=== PATIENT | female | born 1990 | race Caucasian/White ===

== ENCOUNTER 2017-03-13 16:34 | Emergency (ER) | payer OTHER ==
[2017-03-13] MEDS ORDERED: ALBUTEROL SULFATE 0.083% NEB 2.5 MG/3 ML AMPUL NEB ONE (18:26)
--- NOTE | 2017-03-13 18:27 | ER Document Report ---
ED Flu Like - General Chief Complaint: Flu Symptoms Stated Complaint: BODY ACHES Time Seen by Provider: 03/13/17 18:18 Notes: Patient is a 27-year-old female who presents emergency department with a chief complaint of cough, body aches, headache, sinus congestion and drainage for the past 3 weeks on and off. Patient states [place] that she has had sick contacts around her this past month. States she did get a flu vaccine. Otherwise denies any fevers, productive cough, shortness of breath or chest pain, nausea, vomiting, abdominal pain, diarrhea or constipation TRAVEL OUTSIDE OF THE [place] IN LAST 30 DAYS: No - Related Data Allergies/Adverse Reactions: prednisone Allergy (Verified 03/13/17 16:36) Past Medical History - Social History Smoking Status: Never Smoker Family History: Reviewed & Not Pertinent Review of Systems - Review of Systems Constitutional: See HPI EENT: See HPI Cardiovascular: No symptoms reported Respiratory: See HPI Gastrointestinal: See HPI Neurological/Psychological: See HPI -: Yes All other systems reviewed and negative Physical Exam - Vital signs Vitals: Temp Pulse Resp BP Pulse Ox 98.0 F 74 16 107/65 100 03/13/17 16:48 03/13/17 16:48 03/13/17 16:48 03/13/17 16:48 03/13/17 16:48 - Notes Notes: PHYSICAL EXAM GENERAL: Alert, interacts well. HEENT: NCAT, pale conjunctiva, extraocular movements intact, pupils PERRL. external ear normal, no evidence of external auditory canal tenderness, blood/ drainage, cerumen impaction, TM intact without evidence of effusion, bulging, injection, MMM, Uvula midline. Airway patent. No evidence of tonsillar enlargement, peritonsillar abscess, retropharyngeal abscess. Wheezes, rales, or rhonchi. No respiratory distress. HEART: Regular rate and rhythm. No murmurs, gallops, or rubs. ABDOMEN: Soft, nondistended, nontender. No guarding, rebound, or rigidity.. Bowel sounds present in all 4 quadrants. EXTREMITIES: Moves all 4 extremities spontaneously. No edema, radial and dorsalis pedis pulses 2/4 bilaterally. No cyanosis. NEUROLOGICAL: Alert and oriented x4. Normal speech. PSYCH: Normal affect, normal mood. SKIN: Warm, dry, normal turgor. No rashes or lesions noted. Course - Re-evaluation Re-evalutation: 03/13/17 20:18 Patient is a 27-year-old female is hemodynamically stable, no acute distress and afebrile. Chest x-ray clear without any evidence of infiltrate. Rapid strep and rapid flu were both negative. Presentation is most consistent with a viral upper respiratory infection. Patient is overall well appearance, vitals within normal limits, well-hydrated. Patient denies any headache, neck pain, and has no evidence of meningismus on examination. Lungs are clear bilaterally. No evidence of respiratory distress. Based on clinical exam and history, I do not suspect an acute pneumonia, meningitis, strep pharyngitis, or an acute encephalitis. No laboratory or imaging testing is indicated at this time. Will discharge patient with return precautions and followup recommendations. They are in agreement this plan have verbalized understanding return precautions. - Vital Signs Vital signs: Temp Pulse Resp BP Pulse Ox 97.9 F 65 20 114/66 100 03/13/17 20:32 03/13/17 20:32 03/13/17 20:32 03/13/17 20:32 03/13/17 20:32 - Diagnostic Test Radiology reviewed: Image reviewed, Reports reviewed Discharge - Discharge Clinical Impression: URI (upper respiratory infection) Qualifiers: URI type: unspecified viral URI Qualified Code(s): J06.9 - Acute upper respiratory infection, unspecified Condition: Good Disposition: HOME, SELF-CARE Instructions: Upper Respiratory Illness ([facility]) Additional Instructions: Please follow-up with your primary care doctor in 1 week He can take [id number] pseudoephedrine which will function as a decongestant as well as Benadryl. Prescriptions: Benzonatate [Tessalon Perle 100 mg Capsule] 100 mg PO Q8HP PRN #40 cap PRN Reason: Albuterol Sulfate [Proair HFA Inhalation Aerosol 8.5 gm MDI] 1 puff IH Q4 PRN # 1 mdi PRN Reason: Dexamethasone [Dexpak] 1.5 mg PO ASDIR PRN 6 Days #21 tab.ds.pk PRN Reason:
--- NOTE | 2017-03-13 19:11 | RADIOLOGY REPORT (SQ) ---
EXAM DESCRIPTION: CHEST PA/LAT COMPLETED DATE/TIME: 03/13/2017 6:45 pm REASON FOR STUDY: cough COMPARISON: None. EXAM PARAMETERS: NUMBER OF VIEWS: two views TECHNIQUE: Digital Frontal and Lateral radiographic views of the chest acquired. RADIATION DOSE: NA LIMITATIONS: none FINDINGS: LUNGS AND PLEURA: No opacities, masses or pneumothorax. No pleural effusion. MEDIASTINUM AND HILAR STRUCTURES: No masses or contour abnormalities. HEART AND VASCULAR STRUCTURES: Heart normal size. No evidence for failure. BONES: Incidental note is made of mild inferior pectus excavatum deformity. HARDWARE: None in the chest. OTHER: No other significant finding. IMPRESSION: No evidence of acute pulmonary process. TECHNICAL DOCUMENTATION: JOB ID: [id number] [employer]- All Rights Reserved
[2017-03-13 20:03] LABS: A TYPE INFLUENZA AG NEGATIVE (NEGATIVE); B INFLUENZA AG NEGATIVE (NEGATIVE)
[2017-03-13] MEDS ORDERED: ACETAMINOPHEN 325 MG TABLET PO ONE (20:23)
[2017-03-13 20:37] VITALS: BP 114/66
== END 2017-03-13 20:39 | disposition home or self-care (01) ==
LOC: ER 16:34
DX: J06.9 Acute upper respiratory infection, unspecified (principal); M79.1 Myalgia; R05 Cough; R51 Headache; R09.81 Nasal congestion
CPT/HCPCS: 71046; 87070; 87804; 87880; 94640; 99283

== ENCOUNTER 2017-07-15 19:58 | Emergency (ER) | payer OTHER ==
[2017-07-15 20:05] VITALS: BP 105/59
--- NOTE | 2017-07-15 20:25 | ER Document Report ---
ED Medical Screen (RME) - General Chief Complaint: Leg Swelling Stated Complaint: BACK PAIN Time Seen by Provider: 07/15/17 20:14 Notes: 27-year-old female with herniated disc sensation for neurosurgery in 1 month at [place], presents with a few days of increasing right thigh pain and bruising. When she injured her back at work, she also injured her knee. Has not had imaging for her knee. She has been on bedrest until her neurosurgery. PE: Mild right knee effusion with swelling and tenderness, ecchymosis up right medial thigh, strong DP and PT pulses. I have greeted and performed a rapid initial assessment of this patient. A comprehensive ED assessment and evaluation of the patient, analysis of test results and completion of the medical decision making process will be conducted by additional ED providers. TRAVEL OUTSIDE OF THE [place]S. IN LAST 30 DAYS: No - Related Data Allergies/Adverse Reactions: prednisone Allergy (Verified 03/13/17 16:36) Past Medical History - Social History Chew tobacco use (# tins/day): No Frequency of alcohol use: None Drug Abuse: None Renal/ Medical History: Denies: Hx Peritoneal Dialysis Physical Exam - Vital signs Vitals: Temp Pulse Resp BP Pulse Ox 98.5 F 81 15 105/59 L 97 07/15/17 20:03 07/15/17 20:03 07/15/17 20:03 07/15/17 20:03 07/15/17 20:03 Course - Vital Signs Vital signs: Temp Pulse Resp BP Pulse Ox 98.5 F 81 15 105/59 L 97 07/15/17 20:03 07/15/17 20:03 07/15/17 20:03 07/15/17 20:03 07/15/17 20:03
--- NOTE | 2017-07-15 21:02 | RADIOLOGY REPORT (SQ) ---
EXAM DESCRIPTION: KNEE RIGHT 4 VIEWS COMPLETED DATE/TIME: 07/15/2017 8:47 pm REASON FOR STUDY: right knee pain and swelling COMPARISON: None. NUMBER OF VIEWS: Four views. TECHNIQUE: AP, lateral, and both oblique radiographic images acquired of the right knee. LIMITATIONS: None. FINDINGS: MINERALIZATION: Normal. BONES: No acute fracture or dislocation. No worrisome bone lesions. JOINT: No effusion. SOFT TISSUES: No soft tissue swelling. No radio-opaque foreign body. OTHER: No other significant finding. IMPRESSION: NEGATIVE STUDY OF THE RIGHT KNEE. NO RADIOGRAPHIC EVIDENCE OF ACUTE INJURY. TECHNICAL DOCUMENTATION: JOB ID: [id number] [employer]- All Rights Reserved Reading location - IP/workstation name: [email or web address]
--- NOTE | 2017-07-15 22:38 | ER Document Report ---
ED Extremity Problem, Lower - General Chief Complaint: Leg Swelling Stated Complaint: BACK PAIN Time Seen by Provider: 07/15/17 20:14 Mode of Arrival: Ambulatory Information source: Patient Notes: Patient is a 27-year-old female who presents with complaints of right-sided knee pain with bruising. Patient reports that she fell approximately 3 weeks ago while running through the [place]. Patient further reports that she is being worked up for a spinal fusion at [facility]. Patient states that she has not mentioned this to her physician. Provider in triage ordered right knee x-ray as well as right venous Doppler ultrasound. X-ray shows no fracture and no effusion. There is no DVT noted on the venous Doppler. Patient is able to bear weight and ambulate without difficulty. Recommended that patient should follow-up with her primary care physician for possible MRI in case there is a small tear in 1 of her ligaments. Patient understood that this would not necessarily show up on x-rays. Patient declines the need for any pain medications as she states that she rarely has some at home written by her primary care provider. TRAVEL OUTSIDE OF THE [place] IN LAST 30 DAYS: No - Related Data Allergies/Adverse Reactions: prednisone Allergy (Verified 03/13/17 16:36) Past Medical History - Social History Smoking Status: Current Every Day Smoker Chew tobacco use (# tins/day): No Frequency of alcohol use: None Drug Abuse: None Family History: Reviewed & Not Pertinent Patient has suicidal ideation: No Patient has homicidal ideation: No Renal/ Medical History: Denies: Hx Peritoneal Dialysis Physical Exam - Vital signs Vitals: Temp Pulse Resp BP Pulse Ox 98.5 F 81 15 105/59 L 97 07/15/17 20:03 07/15/17 20:03 07/15/17 20:03 07/15/17 20:03 07/15/17 20:03 - Notes Notes: PHYSICAL EXAMINATION: GENERAL: Well-appearing, well-nourished and in no acute distress. HEAD: Atraumatic, normocephalic. EYES: Pupils equal round and reactive to light, extraocular movements intact, conjunctiva are normal. ENT: Nares patent, oropharynx clear without exudates. Moist mucous membranes. NECK: Normal range of motion, supple without lymphadenopathy LUNGS: Breath sounds clear to auscultation bilaterally and equal. No wheezes rales or rhonchi. HEART: Regular rate and rhythm without murmurs ABDOMEN: Soft, nontender, nondistended abdomen. No guarding, no rebound. No masses appreciated. Female : deferred Musculoskeletal: Limited range of motion to right knee, no pitting, mild edema. No cyanosis. NEUROLOGICAL: Cranial nerves grossly intact. Normal speech, normal gait. Normal sensory, motor exams PSYCH: Normal mood, normal affect. SKIN: Warm, Dry, normal turgor, no rashes or lesions noted. Course - Vital Signs Vital signs: Temp Pulse Resp BP Pulse Ox 98.5 F 81 15 105/59 L 97 07/15/17 20:03 07/15/17 20:03 07/15/17 20:03 07/15/17 20:03 07/15/17 20:03 Discharge - Discharge Clinical Impression: Right knee pain Qualifiers: Chronicity: unspecified Qualified Code(s): M25.561 - Pain in right knee Condition: Stable Disposition: HOME, SELF-CARE Additional Instructions: The x-ray of your right knee does not show any signs of fracture or effusion. The venous Doppler of your right leg does not show any evidence of blood clots. Given the fact that your injury was several weeks ago and you are continuing to have pain and swelling to the right knee the next step would be considering an MRI through your primary care provider. I have enclosed copies of your x- ray results for your primary care provider's review and records. Referrals: JACINTO CHEEMA MD [Primary Care Provider] - Follow up as needed
--- NOTE | 2017-07-16 12:10 | XCELERA REPORT ---
[address] [address] Lower Extremity Venous Evaluation Name: SHAJI PACE Age: 27 yrs Gender: Female : 1990 Patient Status: Emergency Patient Location: ER Study Date: 07/15/2017 09:37 PM Procedure: Color flow and duplex imaging of the veins of the right lower extremity as well as the left Common Femoral vein. Reason For Study: RLE swelling Ordering Physician: MAEGAN PUCKETT Performed By: Raleigh Holman Right Sided Venous Evaluation Normal vessel filling wall to wall, compression and augmentation as well as Colour flow down to the infrageniculate veins. Left Sided Venous Evaluation The left common femoral vein is fully compressible. Spontaneous and phasic flow is present in the left common femoral vein. Interpretation Summary No duplex evidence of DVT or obstruction in the right lower extremity nor in the left Common Femoral vein. : MAEGAN PUCKETT > Fabio Martinez
== END 2017-07-15 22:53 | disposition home or self-care (01) ==
LOC: ER 19:58
DX: M25.561 Pain in right knee (principal); M79.89 Other specified soft tissue disorders; M54.9 Dorsalgia, unspecified; F17.200 Nicotine dependence, unspecified, uncomplicated
CPT/HCPCS: 93971; 99284

== ENCOUNTER 2017-09-04 12:59 | Emergency (ER) | payer OTHER ==
[2017-09-04 13:06] VITALS: BP 104/48
--- NOTE | 2017-09-04 13:31 | ER Document Report ---
ED GI/ - General Mode of Arrival: Ambulatory Information source: Patient TRAVEL OUTSIDE OF THE [place] IN LAST 30 DAYS: No - General Chief Complaint: Constipation Stated Complaint: POST SURGICAL PAIN Time Seen by Provider: 09/04/17 13:21 Notes: Patient is a 27-year-old female that presents to the emergency department today with complaints of constipation. Patient 4 days ago she had a lumbar spine discectomy secondary to "being [place] [employer]". Patient states she was given stool softeners but she still has not had a bowel movement since being discharged from the hospital. Patient is on Percocet. (CORNELLMAGALY) - Related Data Allergies/Adverse Reactions: prednisone Allergy (Verified 09/04/17 13:02) Past Medical History - General Information source: Patient - Social History Smoking Status: Former Smoker Cigarette use (# per day): No Chew tobacco use (# tins/day): No Frequency of alcohol use: None Drug Abuse: None Lives with: Family Family History: Reviewed & Not Pertinent Patient has suicidal ideation: No Patient has homicidal ideation: No Past Surgical History: Reports: Hx Orthopedic Surgery - spinal surgery Review of Systems - Review of Systems Constitutional: No symptoms reported EENT: No symptoms reported Cardiovascular: No symptoms reported Respiratory: No symptoms reported Gastrointestinal: See HPI, Nausea, Constipation Genitourinary: No symptoms reported Female Genitourinary: No symptoms reported Musculoskeletal: No symptoms reported Skin: No symptoms reported Hematologic/Lymphatic: No symptoms reported Neurological/Psychological: No symptoms reported -: Yes All other systems reviewed and negative Physical Exam - Vital signs Vitals: Temp Pulse Resp BP Pulse Ox 97.9 F 75 16 104/48 L 99 09/04/17 13:05 09/04/17 13:05 09/04/17 13:05 09/04/17 13:05 09/04/17 13:05 - Notes Notes: Physical Exam: General: Alert, appears well. HEENT: Normocephalic. Atraumatic. PERRL. Extraocular movements intact. Oropharynx clear. Neck: Supple. Non-tender. Respiratory: No respiratory distress. Clear and equal breath sounds bilaterally. Cardiovascular: Regular rate and rhythm. Abdominal: Lower abdominal tenderness. No distension. Normal Bowel Sounds. Back: Well healed surgical incision to lower back, no surrounding erythema or induration. No deformity or step off. Extremities: Moves all four extremities. Able to stand from wheelchair and ambulate without difficulty. Upper extremities: Normal inspection. Normal ROM. Lower extremities: Normal inspection. No edema. Normal ROM. Neurological: Normal cognition. AAOx4. Normal speech. Psychological: Normal affect. Normal Mood. Skin: Warm. Dry. Normal color. (MAGALY SARABIA) Course - Re-evaluation Re-evalutation: 09/04/17 13:35 Patient has benign exam in no distress at this time. No bladder incontinence and is able to stand from chair without difficulty. No concerning signs for infection or cauda equina. Patient has been taking Percocet has been constipated for the last 4-[address] patient on bowel regimen at this time. She opted not to have soapsuds enema in the emergency department and would rather try bowel regimen provided in triage at her own home. Return precautions provided (RASHAD WISEMAN) - Vital Signs Vital signs: Temp Pulse Resp BP Pulse Ox 97.9 F 75 16 104/48 L 99 09/04/17 13:05 09/04/17 13:05 09/04/17 13:05 09/04/17 13:05 09/04/17 13:05 Discharge - Discharge Clinical Impression: Constipation due to opioid therapy Disposition: HOME, SELF-CARE Instructions: Constipation ([facility]), Laxative ([facility]) Prescriptions: Glycerin [Glycerin Laxative] 5.4 gm RC ASDIR PRN #7 ml PRN Reason: Magnesium Hydroxide [Milk of Magnesia] 2,400 mg PO BID #1 bottle Polyethylene Glycol 3350 [Miralax Powder 17 gm/Packet] 1 packet PO DAILY #10 pkg Referrals: JACINTO CHEEMA MD [Primary Care Provider] - Follow up as needed Scribe Attestation: 09/05/17 15:28 I personally performed the services described documentation, reviewed and edited the documentation which was dictated to describe my presence, and it accurately records my words and actions. (RASHAD WISEMAN) Scribe Documentation - Scribe Written by Scribe:: Obdulio Hansen, 09/04/2017 1400 acting as scribe for :: Delano
== END 2017-09-04 14:00 | disposition home or self-care (01) ==
LOC: ER 12:59
DX: K59.03 Drug induced constipation (principal); T40.2X5A Adverse effect of other opioids, initial encounter; Z98.890 Other specified postprocedural states; R11.0 Nausea; Z88.8 Allergy status to other drugs, medicaments and biological substances; Z87.891 Personal history of nicotine dependence
CPT/HCPCS: 99283

== ENCOUNTER 2017-10-24 14:11 | Emergency (ER) | payer OTHER ==
[2017-10-24] MEDS ORDERED: RINGERS SOLUTION,LACTATED 1,000 ML IV ONE (14:48)
[2017-10-24] MEDS ORDERED: ONDANSETRON HCL INJ/PF 4 MG/2 ML SDV IV ONE (14:48)
--- NOTE | 2017-10-24 14:50 | ER Document Report ---
ED Medical Screen (RME) - General Chief Complaint: Nausea/Vomiting Stated Complaint: NAUSEA Time Seen by Provider: 10/24/17 14:43 Mode of Arrival: Wheelchair Information source: Patient Notes: This is a 27-year-old female that had a discectomy August 31 in [facility]. Her postoperative period is been complicated by pain and she has been evaluated by back specialist at [place] (seen last week) and is currently undergoing workup for radicular type symptoms. Patient presents today with nausea, vomiting, worsening back pain. Patient denies fever. Patient is requesting to hold off on pain medicine at this time. TRAVEL OUTSIDE OF THE [place] IN LAST 30 DAYS: No - Related Data Allergies/Adverse Reactions: prednisone Allergy (Verified 10/24/17 14:12) Past Medical History Renal/ Medical History: Denies: Hx Peritoneal Dialysis Past Surgical History: Reports: Hx Orthopedic Surgery - spinal surgery Physical Exam - Vital signs Vitals: Temp Pulse Resp BP Pulse Ox 98.9 F 76 16 100/45 L 98 10/24/17 14:25 10/24/17 14:25 10/24/17 14:25 10/24/17 14:25 10/24/17 14:25 Course - Vital Signs Vital signs: Temp Pulse Resp BP Pulse Ox 98.9 F 76 16 100/45 L 98 10/24/17 14:25 10/24/17 14:25 10/24/17 14:25 10/24/17 14:25 10/24/17 14:25 Doctor's Discharge - Discharge Referrals: JACINTO CHEEMA MD [Primary Care Provider] - Follow up as needed
[2017-10-24 15:13] LABS: ABSOLUTE EOSINOPHILS # (AUTO) 0.1 10^3/uL (0.0-0.6); ABSOLUTE LYMPHOCYTES (AUTO) 1.7 10^3/uL (0.5-4.7); ABSOLUTE MONOCYTES (AUTO) 0.4 10^3/uL (0.1-1.4); ABSOLUTE NEUT (AUTO) 2.5 10^3/uL (1.7-8.2); BASOPHILS % (AUTO) 0.7 % (0-2); EOSINOPHILS % (AUTO) 2.1 % (0-6); HEMATOCRIT 39.7 % (36.0-47.0); HEMOGLOBIN 13.5 g/dL (12.0-15.5); LYMPHOCYTES % (AUTO) 35.6 % (13-45); MEAN CORPUSCULAR VOLUME 91 fl (80-97); MONOCYTES % (AUTO) 8.8 % (3-13); PLATELET COUNT 218 10^3/uL (150-450); RED BLOOD COUNT 4.35 10^6/uL (3.72-5.28); RED CELL DISTRIBUTION WIDTH 12.3 % (11.5-14.0); SEGMENTED NEUTROPHILS % (AUTO) 52.8 % (42-78); TOTAL CELLS COUNTED % (AUTO) 100 %; WHITE BLOOD COUNT 4.8 10^3/uL (4.0-10.5)
[2017-10-24] MEDS ORDERED: FENTANYL CITRATE INJ/PF 100 MCG/2 ML AMPUL IV ONE (15:31)
[2017-10-24] MEDS ORDERED: NORMAL SALINE 1000 ML 1,000 ML IV ONE (15:31)
[2017-10-24] MEDS ORDERED: MECLIZINE HCL 25 MG TABLET PO ONE (15:32)
[2017-10-24] MEDS ORDERED: LIDOCAINE 5% (700 MG) TRANSDERMAL ADH..PATCH TP ONE (15:32)
[2017-10-24 15:37] LABS: ALANINE AMINOTRANSFERASE 20 U/L (9-52); ALBUMIN 4.5 g/dL (3.5-5.0); ALKALINE PHOSPHATASE 27 U/L (38-126); ANION GAP 14 (5-19); ASPARTATE AMINO TRANSFERASE 23 U/L (14-36); BILIRUBIN,DIRECT 0.3 mg/dL (0.0-0.4); BILIRUBIN,TOTAL 1.3 mg/dL (0.2-1.3); BLOOD UREA NITROGEN 12 mg/dL (7-20); CALCIUM 9.5 mg/dL (8.4-10.2); CARBON DIOXIDE 23 mmol/L (22-30); CHLORIDE 106 mmol/L (98-107); GLUCOSE 100 mg/dL (75-110); POTASSIUM 4.5 mmol/L (3.6-5.0); SODIUM 142.5 mmol/L (137-145); TOTAL PROTEIN 7.5 g/dL (6.3-8.2)
--- NOTE | 2017-10-24 15:56 | ER Document Report ---
ED General - General Chief Complaint: Nausea/Vomiting Stated Complaint: NAUSEA Time Seen by Provider: 10/24/17 14:43 Mode of Arrival: Wheelchair Information source: Patient Notes: Patient presents complaining of a flareup of her chronic back pain that radiates to the left lower extremity. Patient has a previous history of discectomy to the L5-S1 area. Patient did recently see her surgeon last week and has an upcoming MRI next week as well as plans to have an EMG scheduled. Patient denies any new injury to the back and states back pain is not typical location where she has had pain in the past. Patient does report nausea and vomiting today and has vomited twice. Patient without any significant abdominal tenderness symptoms. Patient does complain of some dizzy symptoms that she describes as feeling off balance. Patient without any urinary retention or incontinence symptoms. TRAVEL OUTSIDE OF THE [place] IN LAST 30 DAYS: No - HPI Onset: This morning Onset/Duration: Persistent Quality of pain: Sharp Pain Level: 4 Associated symptoms: Nausea, Vomiting, Other - Chronic back pain. denies: Chest pain, Nonproductive cough, Productive cough, Diarrhea, Fever Exacerbated by: Movement Relieved by: Denies Similar symptoms previously: Yes Recently seen / treated by doctor: Yes - Related Data Allergies/Adverse Reactions: prednisone Allergy (Verified 10/24/17 14:12) Past Medical History - General Information source: Patient - Social History Smoking Status: Never Smoker Chew tobacco use (# tins/day): No Frequency of alcohol use: None Drug Abuse: None Occupation: Active duty Family History: Reviewed & Not Pertinent Patient has suicidal ideation: No Patient has homicidal ideation: No Renal/ Medical History: Denies: Hx Peritoneal Dialysis Musculoskeletal Medical History: Reports Other - Chronic back pain Past Surgical History: Reports: Hx Orthopedic Surgery - spinal surgery Review of Systems - Review of Systems Constitutional: No symptoms reported. denies: Fever, Recent illness EENT: No symptoms reported Cardiovascular: Dizziness Respiratory: No symptoms reported. denies: Cough, Short of breath Gastrointestinal: Nausea, Vomiting. denies: Diarrhea Genitourinary: No symptoms reported. denies: Dysuria, Flank pain Female Genitourinary: No symptoms reported. denies: Musculoskeletal: Back pain Skin: No symptoms reported. denies: Rash Hematologic/Lymphatic: No symptoms reported Neurological/Psychological: No symptoms reported. denies: Headaches Physical Exam - Vital signs Vitals: Temp Pulse Resp BP Pulse Ox 98.9 F 76 16 100/45 L 98 10/24/17 14:25 10/24/17 14:25 10/24/17 14:25 10/24/17 14:25 10/24/17 14:25 - General General appearance: Appears well, Alert In distress: None - HEENT Head: Normocephalic, Atraumatic Eyes: Normal Conjunctiva: Normal Extraocular movements intact: Yes Eyelashes: Normal Pupils: PERRL Ears: Normal External canal: Foreign body - Patient with ear tube and left external auditory canal Tympanic membrane: Normal Nasal: Normal Mouth/Lips: Normal Mucous membranes: Normal Pharynx: Normal Neck: Normal, Supple. No: Lymphadenopathy - Respiratory Respiratory status: No respiratory distress Chest status: Nontender Breath sounds: Normal. No: Rales, Rhonchi, Stridor, Wheezing Chest palpation: Normal - Cardiovascular Rhythm: Regular Heart sounds: S1 appreciated, S2 appreciated - Abdominal Inspection: Normal Distension: No distension Bowel sounds: Normal Tenderness: Tender - epigastric Organomegaly: No organomegaly - Back Back: Tender - Left paraspinal tenderness, left SI joint tenderness, Scars - Lower lumbar linear scar. No: Deformity/step-off, CVA tenderness - Extremities General upper extremity: Normal inspection, Normal ROM General lower extremity: Normal inspection, Normal ROM - Neurological Neuro grossly intact: Yes Cognition: Normal Miki Coma Scale Eye Opening: Spontaneous Miki Coma Scale Verbal: Oriented Miki Coma Scale Motor: Obeys Commands [place] Coma Scale Total: 15 Motor strength normal: LUE, RUE, LLE, RLE Notes: No saddle anesthesia, no footdrop - Psychological Associated symptoms: Normal affect, Normal mood - Skin Skin Temperature: Warm Skin Moisture: Dry Skin Color: Normal Course - Re-evaluation Re-evalutation: 10/24/17 17:39 Patient reports that headache pain and dizziness have improved. Patient states back pain is tolerable at this time. Patient states that she would like to receive the prescription that is not quite as strong as Percocet because she does not want to be hooked on narcotics. Patient educated on the efficacy of anti-inflammatories with acetaminophen. Patient does have an appointment next week for her MRI as well as for an EMG per her surgeon. Patient encouraged to follow back up with her surgeon to discuss her pain management. The patient presents with low back pain without signs of spinal cord compression , cauda equina syndrome, infection, aneurysm, or other serious etiology. The patient is neurologically intact. Given the extremely risk of these diagnoses further testing and evaluation for these possibilities does not appear to be indicated at this time. Patient has been instructed to return if the symptoms worsen or change in any way. - Vital Signs Vital signs: Temp Pulse Resp BP Pulse Ox 98.4 F 64 16 96/68 L 99 10/24/17 17:33 10/24/17 17:33 10/24/17 17:33 10/24/17 17:33 10/24/17 17:33 - Laboratory Result Diagrams: 10/24/17 15:03 10/24/17 15:03 Laboratory results interpreted by me: 10/24/17 15:03 Alkaline Phosphatase 27 L 10/24/17 17:41 Labs- Entire Visit 10/24/17 10/24/17 10/24/17 14:03 15:03 15:03 WBC 4.8 RBC 4.35 Hgb 13.5 Hct 39.7 MCV 91 MCH 31.0 MCHC 34.0 RDW 12.3 Plt Count 218 Seg Neutrophils % 52.8 Lymphocytes % 35.6 Monocytes % 8.8 Eosinophils % 2.1 Basophils % 0.7 Absolute Neutrophils 2.5 Absolute Lymphocytes 1.7 Absolute Monocytes 0.4 Absolute Eosinophils 0.1 Absolute Basophils 0.0 Sodium 142.5 Potassium 4.5 Chloride 106 Carbon Dioxide 23 Anion Gap 14 BUN 12 Creatinine 0.70 Est GFR ( Amer) > 60 Est GFR (Non-Af Amer) > 60 Glucose 100 Calcium 9.5 Total Bilirubin 1.3 Direct Bilirubin 0.3 Neonat Total Bilirubin Not Reportable Neonat Direct Bilirubin Not Reportable Neonat Indirect Bili Not Reportable AST 23 ALT 20 Alkaline Phosphatase 27 L Total Protein 7.5 Albumin 4.5 Lipase Serum HCG, Qual NEGATIVE 10/24/17 15:03 WBC RBC Hgb Hct MCV MCH MCHC RDW Plt Count Seg Neutrophils % Lymphocytes % Monocytes % Eosinophils % Basophils % Absolute Neutrophils Absolute Lymphocytes Absolute Monocytes Absolute Eosinophils Absolute Basophils Sodium Potassium Chloride Carbon Dioxide Anion Gap BUN Creatinine Est GFR ( Amer) Est GFR (Non-Af Amer) Glucose Calcium Total Bilirubin Direct Bilirubin Neonat Total Bilirubin Neonat Direct Bilirubin Neonat Indirect Bili AST ALT Alkaline Phosphatase Total Protein Albumin Lipase 106.8 Serum HCG, Qual Discharge - Discharge Clinical Impression: Chronic back pain Qualifiers: Back pain location: low back pain Back pain laterality: left Sciatica presence : with sciatica Sciatica laterality: sciatica of left side Qualified Code(s): M54.42 - Lumbago with sciatica, left side Nausea and vomiting Qualifiers: Vomiting type: unspecified Vomiting Intractability: non-intractable Qualified Code(s): R11.2 - Nausea with vomiting, unspecified Condition: Stable Disposition: HOME, SELF-CARE Instructions: Chronic Back Pain ([facility]), Intravenous (IV) Fluids ([facility]), Vomiting ([facility]) Additional Instructions: Return immediately for any new or worsening symptoms Followup with your primary care provider, call tomorrow to make a followup appointment Follow-up with your surgeon for recheck. Prescriptions: Meclizine HCl [Antivert 25 mg Tablet] 25 mg PO ASDIR PRN #15 tablet PRN Reason: Promethazine HCl [Phenergan 25 mg Tablet] 25 mg PO Q6H PRN #10 tablet PRN Reason: Referrals: JACINTO CHEEMA MD [Primary Care Provider] - Follow up as needed [facility] [Provider Group] - Follow up as needed
[2017-10-24 17:51] VITALS: BP 96/68
== END 2017-10-24 17:51 | disposition home or self-care (01) ==
LOC: ER 14:11
DX: G89.29 Other chronic pain (principal); M54.42 Lumbago with sciatica, left side; R11.2 Nausea with vomiting, unspecified
CPT/HCPCS: 99284; 96361; 96374; 96375; 36415; 83690; 84703; 85025; 80053; J3010; J2405; J7030; J7120

== ENCOUNTER 2017-12-20 06:49 | Emergency (ER) | payer OTHER ==
[2017-12-20] MEDS ORDERED: NORMAL SALINE 1000 ML 1,000 ML IV ONE ×3 (07:02→10:19)
--- NOTE | 2017-12-20 07:10 | ER Document Report ---
ED General - General Chief Complaint: Near Syncope Stated Complaint: WEAKNESS Time Seen by Provider: 12/20/17 07:02 Notes: 27-year-old female presents to the ER with dizziness and weakness. The patient stated she was doing okay yesterday. This morning when she went to get up out of bed she felt very dizzy and weak as if she was going to pass out. The patient stated she felt okay when she laid back down but when she went to set up she got very dizzy and weak. The patient has not had this issue before. The patient denies any nausea vomiting or diarrhea. Denies fever chills denies sore throat states he has had a productive cough with some thick white sputum. Denies any vaginal bleeding or discharge. Denies any black bloody or tarry stools. Denies any . Denies falls trauma. Denies any fever or chills. Patient is stated she just does not feel good upon standing. TRAVEL OUTSIDE OF THE [place] IN LAST 30 DAYS: No - Related Data Allergies/Adverse Reactions: prednisone Allergy (Verified 10/24/17 14:12) Past Medical History - Social History Smoking Status: Unknown if Ever Smoked Family History: Reviewed & Not Pertinent Patient has suicidal ideation: No Patient has homicidal ideation: No Renal/ Medical History: Denies: Hx Peritoneal Dialysis Past Surgical History: Reports: Hx Orthopedic Surgery - spinal surgery Review of Systems - Review of Systems Constitutional: Fever, Weakness. denies: Chills Cardiovascular: Dizziness, Lightheaded. denies: Chest pain, Dyspnea Gastrointestinal: denies: Abdominal pain, Nausea, Vomiting Genitourinary: denies: Dysuria, Discharge Female Genitourinary: denies: Musculoskeletal: Back pain -: Yes All other systems reviewed and negative Physical Exam - Vital signs Vitals: Pulse Ox 100 12/20/17 06:50 - Notes Notes: GENERAL_APPEARANCE: well_nourished, alert, cooperative VITALS: reviewed, see vital signs table. HEAD: no_swelling\tenderness on the head. EYES: PERRL, EOMI, conjunctiva_clear. NOSE: no_nasal_discharge. MOUTH: Dry mucous membranes THROAT: no_tonsilar_inflammation, no_airway_obstruction. no_lymphadenopathy NECK: supple, no_neck_tenderness, (-)thyromegaly. BACK: Her back surgery some mild L4 tenderness which is chronic for the patient CHEST_WALL: no_chest_tenderness. LUNGS: no_wheezing, no_rales, no_rhonchi, (-)accessory muscle use, good air exchange bilateral. HEART: normal_rate, normal_rhythm, normal_S1, normal_S2, (-)S3, (-)S4, no_ murmur, no_rub. ABDOMEN: normal_BS, soft, no_abd_tenderness, (-)guarding, (-)rebound, no_ organomegaly, no_abd_masses. EXTREMITIES: good pulses in all_extremities, no_swelling\tenderness in the extremities, no_edema. SKIN: warm, dry, pale color, no_rash. MENTAL_STATUS: speech_clear, oriented_X_3, normal_affect, responds_ appropriately to questions. NEURO: Neg Motor or Sensory Deficits on exam, CN 2-12 intact, DTR 2+ symmetric x 4, No cerbellar signs Course - Re-evaluation Re-evalutation: 12/20/17 07:09 The patient presents with low blood pressure low heart rate. Patient is not on any beta-blockers her blood pressure medicine she denies any drug use. Patient looks clinically dry on exam we will give her several liters of IV fluids. The patient is very thin to begin with and may normally run low. The patient denies any fever chills or dysuria will check urine and chest x-ray. I do not suspect sepsis at this time 12/20/17 13:11 Was monitored for many hours and was given 3 L of IV fluid she symptomatically is feeling much better. We stood her up her blood pressure is hanging right around 89-90. She is not tachycardic. Her rate actually runs a little bit on the low side. She is active duty. She is thin. I imagine that she usually runs low for her blood pressure. Her blood work was very reassuring. No significant abnormalities her lactic acid was normal. No signs of any infections anywhere. He denies any substances. She is wanting to go home she is able to get up and walk without any difficulty I encouraged her to aggressively hydrate over the next 24 hours. If she has any additional issues she is to return directly to the ER. I did tell her she is not to drive. She is [place] [facility] [place] - Vital Signs Vital signs: Temp Pulse Resp BP Pulse Ox 97.6 F 57 L 13 105/73 100 12/20/17 06:55 12/20/17 10:19 12/20/17 12:31 12/20/17 12:31 12/20/17 12:31 - Laboratory Result Diagrams: 12/20/17 06:50 12/20/17 06:50 Laboratory results interpreted by me: 12/20/17 12/20/17 12/20/17 06:50 06:50 08:32 Chloride 108 H Total Bilirubin 1.4 H Alkaline Phosphatase 32 L TSH 5.86 H Urine Blood MODERATE H Salicylates < 1.0 L Acetaminophen < 10 L - EKG Interpretation by Me EKG shows normal: Sinus rhythm Rate: Bradycardia Rhythm: NSR When compared to previous EKG there are: Previous EKG unavailable Discharge - Discharge Clinical Impression: Orthostatic hypotension, Dehydration Condition: Good Disposition: HOME, SELF-CARE Instructions: Orthostatic Hypotension ([facility]), Dehydration ([facility]) Additional Instructions: Drink plenty of fluids [place] If worse or not improving return to the ER or closest ER. Referrals: JACINTO CHEEMA MD [Primary Care Provider] - Follow up as needed
[2017-12-20 07:18] LABS: ABSOLUTE EOSINOPHILS # (AUTO) 0.1 10^3/uL (0.0-0.6); ABSOLUTE LYMPHOCYTES (AUTO) 1.8 10^3/uL (0.5-4.7); ABSOLUTE MONOCYTES (AUTO) 0.6 10^3/uL (0.1-1.4); ABSOLUTE NEUT (AUTO) 4.1 10^3/uL (1.7-8.2); BASOPHILS % (AUTO) 0.3 % (0-2); EOSINOPHILS % (AUTO) 1.8 % (0-6); HEMATOCRIT 37.1 % (36.0-47.0); HEMOGLOBIN 12.8 g/dL (12.0-15.5); LYMPHOCYTES % (AUTO) 27.3 % (13-45); MEAN CORPUSCULAR HEMOGLOBIN 31.8 pg (27.0-33.4); MEAN CORPUSCULAR HGB CONC 34.4 g/dL (32.0-36.0); MEAN CORPUSCULAR VOLUME 93 fl (80-97); MONOCYTES % (AUTO) 9.1 % (3-13); PLATELET COUNT 187 10^3/uL (150-450); RED BLOOD COUNT 4.02 10^6/uL (3.72-5.28); RED CELL DISTRIBUTION WIDTH 12.3 % (11.5-14.0); SEGMENTED NEUTROPHILS % (AUTO) 61.5 % (42-78); TOTAL CELLS COUNTED % (AUTO) 100 %; WHITE BLOOD COUNT 6.7 10^3/uL (4.0-10.5)
--- NOTE | 2017-12-20 07:33 | RADIOLOGY REPORT (SQ) ---
EXAM DESCRIPTION: XR CHEST 1 VIEW COMPLETED DATE/TME: 12/20/2017 07:03 CLINICAL HISTORY: low bp COMPARISON: 03/13/2017 FINDINGS: Single frontal view of the chest. The cardiomediastinal silhouette has normal size and contour. No consolidation, pneumothorax, or pleural effusion. No displaced rib fractures identified. Leads overlie the chest. Upper abdominal soft tissues are unremarkable. IMPRESSION: 1. No acute pulmonary process identified.
[2017-12-20 07:37] LABS: ALANINE AMINOTRANSFERASE 13 U/L (9-52); ALKALINE PHOSPHATASE 32 U/L (38-126); ANION GAP 10 (5-19); ASPARTATE AMINO TRANSFERASE 16 U/L (14-36); BILIRUBIN,DIRECT 0.4 mg/dL (0.0-0.4); BILIRUBIN,TOTAL 1.4 mg/dL (0.2-1.3); BLOOD UREA NITROGEN 13 mg/dL (7-20); CARBON DIOXIDE 23 mmol/L (22-30); CHLORIDE 108 mmol/L (98-107); CREATINE KINASE 62 U/L (30-135); GLUCOSE 97 mg/dL (75-110); SODIUM 140.8 mmol/L (137-145); TOTAL PROTEIN 6.6 g/dL (6.3-8.2)
[2017-12-20 07:40] LABS: ACETAMINOPHEN < 10 ug/mL (10-30); ALCOHOL < 10 mg/dL (NONE DETECTED); SALICYLATE < 1.0 mg/dL (2.0-20.0)
--- NOTE | 2017-12-20 07:58 | EKG REPORT ---
SEVERITY:- ABNORMAL ECG - SINUS RHYTHM NONSPECIFIC T ABNORMALITIES, ANT-LAT LEADS : Confirmed by: Omar Jara MD 20-Dec-2017 07:57:56
[2017-12-20 08:22] LABS: FREE T4 (FREE THYROXINE) 0.96 ng/dL (0.78-2.19)
[2017-12-20 08:36] LABS: THYROID STIMULATING HORMONE 5.86 uIU/mL (0.47-4.68)
[2017-12-20 09:03] LABS: APPEARANCE,URINE CLEAR; BILIRUBIN,URINE NEGATIVE (NEGATIVE); COLOR,URINE YELLOW; GLUCOSE, URINE NEGATIVE (NEGATIVE); KETONES,URINE NEGATIVE (NEGATIVE); LEUKOCYTE ESTERASE,URINE NEGATIVE (NEGATIVE); NITRITE,URINE NEGATIVE (NEGATIVE); PROTEIN,URINE NEGATIVE (NEGATIVE); URINE SPECIFIC GRAVITY 1.009; UROBILINOGEN,URINE NEGATIVE mg/dL (<2.0)
[2017-12-20] MEDS ORDERED: ACETAMINOPHEN 325 MG TABLET PO ONE (09:03)
[2017-12-20 09:19] LABS: URINE AMPHETAMINES SCREEN NEGATIVE; URINE BARBITURATES SCREEN NEGATIVE; URINE BENZODIAZEPINES SCREEN NEGATIVE; URINE COCAINE SCREEN NEGATIVE; URINE MARIJUANA (THC) SCREEN NEGATIVE; URINE METHADONE SCREEN NEGATIVE; URINE PHENCYCLIDINE SCREEN NEGATIVE
[2017-12-20 14:06] VITALS: BP 93/57
== END 2017-12-20 13:20 | disposition home or self-care (01) ==
LOC: ER 06:49
DX: I95.1 Orthostatic hypotension (principal); E86.0 Dehydration; R50.9 Fever, unspecified; R05 Cough; M54.9 Dorsalgia, unspecified; Z98.890 Other specified postprocedural states
CPT/HCPCS: 93005; 99284; 96360; 96361; 36415; 84439; 80307 ×4; 82550; 84443; 85025; 81025; 80053; 81001; 84484; 83605; 71045; 93010; J7030

== ENCOUNTER 2018-12-26 05:39 | Emergency (ER) | payer OTHER ==
[2018-12-26] MEDS ORDERED: ONDANSETRON HCL INJ/PF 4 MG/2 ML SDV IV ONE (05:54)
[2018-12-26] MEDS ORDERED: HYDROMORPHONE HCL INJ/PF 2 MG/ML AMPULE IV ONE (05:55)
[2018-12-26] MEDS ORDERED: NORMAL SALINE 1000 ML 1,000 ML IV ONE ×2 (05:55→07:55)
[2018-12-26] MEDS ORDERED: FENTANYL CITRATE INJ/PF 100 MCG/2 ML AMPUL IV ONE (05:55)
[2018-12-26 06:07] LABS: ABSOLUTE EOSINOPHILS # (AUTO) 0.1 10^3/uL (0.0-0.6); ABSOLUTE LYMPHOCYTES (AUTO) 2.4 10^3/uL (0.5-4.7); ABSOLUTE MONOCYTES (AUTO) 0.5 10^3/uL (0.1-1.4); ABSOLUTE NEUT (AUTO) 2.1 10^3/uL (1.7-8.2); BASOPHILS % (AUTO) 0.6 % (0-2); EOSINOPHILS % (AUTO) 2.1 % (0-6); HEMATOCRIT 38.2 % (36.0-47.0); HEMOGLOBIN 12.8 g/dL (12.0-15.5); LYMPHOCYTES % (AUTO) 46.9 % (13-45); MEAN CORPUSCULAR HEMOGLOBIN 30.9 pg (27.0-33.4); MEAN CORPUSCULAR HGB CONC 33.6 g/dL (32.0-36.0); MEAN CORPUSCULAR VOLUME 92 fl (80-97); PLATELET COUNT 194 10^3/uL (150-450); RED BLOOD COUNT 4.15 10^6/uL (3.72-5.28); RED CELL DISTRIBUTION WIDTH 12.2 % (11.5-14.0); SEGMENTED NEUTROPHILS % (AUTO) 41.4 % (42-78); TOTAL CELLS COUNTED % (AUTO) 100 %; WHITE BLOOD COUNT 5.1 10^3/uL (4.0-10.5)
--- NOTE | 2018-12-26 06:25 | ER Document Report ---
ED GI/ - General TRAVEL OUTSIDE OF THE [place] IN LAST 30 DAYS: No <STEFFI GUTIERREZ - Last Filed: 12/26/18 08:00> <OBINNA LAROSE - Last Filed: 12/26/18 08:37> - General Chief Complaint: Abdominal Pain Stated Complaint: ABDOMINAL PAIN Time Seen by Provider: 12/26/18 05:51 Primary Care Provider: SAL KENNY MD [ACTIVE STAFF] - Follow up as needed KYLE SIMS DO [NO LOCAL MD] - Follow up as needed Notes: Patient is a 28-year-old female presents to the emergency department with sudden onset of right lower abdominal pain. Patient voices she has stabbing right lower abdominal pain for approximately the last hour. Patient also voices she feels nauseated. She is denying any vomiting or diarrhea. States "I have not had a very good bowel movement in the last couple of days." Patient's denying any dysuria or vaginal discharge. Patient is lying on her right side in the position rocking back and forth. (STEFFI GUTIERREZ) - Related Data Allergies/Adverse Reactions: prednisone Allergy (Verified 10/24/17 14:12) Past Medical History - General Information source: Patient - Social History Smoking Status: Never Smoker Chew tobacco use (# tins/day): No Frequency of alcohol use: None Drug Abuse: None Family History: Reviewed & Not Pertinent Patient has suicidal ideation: No Patient has homicidal ideation: No Renal/ Medical History: Denies: Hx Peritoneal Dialysis Past Surgical History: Reports: Hx Orthopedic Surgery - spinal surgery <STEFFI GUTIERREZ - Last Filed: 12/26/18 08:00> Review of Systems - Review of Systems Constitutional: denies: Fever EENT: No symptoms reported Cardiovascular: No symptoms reported Respiratory: No symptoms reported Gastrointestinal: See HPI Genitourinary: See HPI Female Genitourinary: Last menstrual period - unsure Musculoskeletal: denies: Back pain Skin: No symptoms reported Hematologic/Lymphatic: No symptoms reported Neurological/Psychological: No symptoms reported <STEFFI GUTIERREZ - Last Filed: 12/26/18 08:00> Physical Exam <STEFFI GUTIERREZ - Last Filed: 12/26/18 08:00> - Vital signs Vitals: Temp Pulse Resp BP 97.5 F 56 L 16 98/60 L 12/26/18 05:39 12/26/18 05:39 12/26/18 05:39 12/26/18 05:39 - Notes Notes: GENERAL: Alert, interacts well. HEAD: Normocephalic, atraumatic. EYES: Pupils equal, round, and reactive to light. Extraocular movements intact. ENT: Oral mucosa moist, tongue midline. NECK: Full range of motion. Supple. Trachea midline. LUNGS: Clear to auscultation bilaterally, no wheezes, rales, or rhonchi. No respiratory distress. HEART: Regular rate and rhythm. No murmur ABDOMEN: Soft, right lower quadrant abdominal pain noted, slight suprapubic pain noted. Non-distended. Bowel sounds present in all 4 quadrants. Otherwise abdominal exam benign. EXTREMITIES: Moves all 4 extremities spontaneously. No edema, normal radial and dorsalis pedis pulses bilaterally. No cyanosis. BACK: no cervical, thoracic, lumbar midline tenderness. No saddle anesthesia, normal distal neurovascular exam. No CVA tenderness noted bilaterally NEUROLOGICAL: Alert and oriented x3. Normal speech. cranial nerves II through XII grossly intact. PSYCH: Normal affect, normal mood. SKIN: Warm, dry, normal turgor. No rashes or lesions noted. (STEFFI GUTIERREZ) Course - Laboratory Result Diagrams: 12/26/18 05:45 12/26/18 05:45 <STEFFI GUTIERREZ - Last Filed: 12/26/18 08:00> - Laboratory Result Diagrams: 12/26/18 05:45 12/26/18 05:45 <OBINNA LAROSE - Last Filed: 12/26/18 08:37> - Re-evaluation Re-evalutation: 12/26/18 07:42 Laboratory 12/26/18 12/26/18 12/26/18 05:45 05:45 05:45 WBC 5.1 RBC 4.15 Hgb 12.8 Hct 38.2 MCV 92 MCH 30.9 MCHC 33.6 RDW 12.2 Plt Count 194 Lymph % (Auto) 46.9 H [place] % (Auto) 9.0 Eos % (Auto) 2.1 Baso % (Auto) 0.6 Absolute Neuts (auto) 2.1 Absolute Lymphs (auto) 2.4 Absolute Monos (auto) 0.5 Absolute Eos (auto) 0.1 Absolute Basos (auto) 0.0 Seg Neutrophils % 41.4 L Sodium 140.9 Potassium 3.4 L Chloride 113 H Carbon Dioxide 22 Anion Gap 6 BUN 11 Creatinine 0.64 Est GFR ( Amer) > 60 Est GFR (MDRD) Non-Af > 60 Glucose 90 Calcium 7.7 L Total Bilirubin 0.9 Direct Bilirubin 0.1 Neonat Total Bilirubin Not Reportable Neonat Direct Bilirubin Not Reportable Neonat Indirect Bili Not Reportable AST 17 ALT 11 Alkaline Phosphatase 27 L Total Protein 5.8 L Albumin 3.3 L Lipase 61.8 Serum HCG, Qual NEGATIVE Urine Color Urine Appearance Urine pH Ur Specific [place] Urine Protein Urine Glucose (UA) Urine Ketones Urine Blood Urine Nitrite Urine Bilirubin Urine Urobilinogen Ur Leukocyte Esterase Urine WBC (Auto) Urine RBC (Auto) Squamous Epi Cells Auto Urine Mucus (Auto) Urine Ascorbic Acid 12/26/18 06:28 WBC RBC Hgb Hct MCV MCH MCHC RDW Plt Count Lymph % (Auto) [place] % (Auto) Eos % (Auto) Baso % (Auto) Absolute Neuts (auto) Absolute Lymphs (auto) Absolute Monos (auto) Absolute Eos (auto) Absolute Basos (auto) Seg Neutrophils % Sodium Potassium Chloride Carbon Dioxide Anion Gap BUN Creatinine Est GFR ( Amer) Est GFR (MDRD) Non-Af Glucose Calcium Total Bilirubin Direct Bilirubin Neonat Total Bilirubin Neonat Direct Bilirubin Neonat Indirect Bili AST ALT Alkaline Phosphatase Total Protein Albumin Lipase Serum HCG, Qual Urine Color YELLOW Urine Appearance CLEAR Urine pH 6.0 Ur Specific [place] 1.014 Urine Protein NEGATIVE Urine Glucose (UA) NEGATIVE Urine Ketones NEGATIVE Urine Blood NEGATIVE Urine Nitrite NEGATIVE Urine Bilirubin NEGATIVE Urine Urobilinogen NEGATIVE Ur Leukocyte Esterase NEGATIVE Urine WBC (Auto) 0 Urine RBC (Auto) 0 Squamous Epi Cells Auto 1 Urine Mucus (Auto) RARE Urine Ascorbic Acid NEGATIVE Abdomen/Pelvis CT 12/26/18 05:54 IMPRESSION: 1. Large left adnexal cystic mass measuring 7.3 x 8.5 x 7.0 cm likely ovarian in nature. Recommend follow-up pelvic MRI with IV contrast or surgical evaluation. 2. Moderate fecal residue in the ascending colon without evidence of bowel obstruction. 3. Dorsal column stimulator noted. Patient CT does show signs of constipation. I have reexamined the patient at bedside. She states the right lower quadrant abdominal pain has somewhat subsided with pain medication. States the pain is now intermittent. Repeat examination reveals no left lower abdominal pain or left pelvic pain. Discussed with patient CT image results of the potential ovarian cyst and need for follow-up with [facility]. Discussed patient's laboratory values of hypocalcemia. Discussed close follow- up with primary care provider. Patient has opted for a soapsuds enema in the emergency department in hopes to relieve the stool burden. 12/26/18 08:00 Patient's blood pressure was noted to be low at today's visit. In reviewing past patient charts it does appear patient's blood pressure is typically around the 90s systolic. This does appear to be her baseline. Patient care and report transferred to Obinna Larose, nurse practitioner at shift change. (STEFFI GUTIERREZ) 12/26/18 08:35 Patient had large bowel movement per nursing staff. Patient up for discharge. (OBINNA LAROSE) - Vital Signs Vital signs: Temp Pulse Resp BP Pulse Ox 98.0 F 58 L 14 88/48 L 100 12/26/18 08:00 12/26/18 08:00 12/26/18 08:00 12/26/18 08:00 12/26/18 08:00 - Laboratory Laboratory results interpreted by me: 12/26/18 12/26/18 05:45 05:45 Lymph % (Auto) 46.9 H Seg Neutrophils % 41.4 L Potassium 3.4 L Chloride 113 H Calcium 7.7 L Alkaline Phosphatase 27 L Total Protein 5.8 L Albumin 3.3 L Discharge <STEFFI GUTIERREZ - Last Filed: 12/26/18 08:00> <OBINNA LAROSE - Last Filed: 12/26/18 08:37> - Discharge Clinical Impression: Constipation Qualifiers: Constipation type: unspecified constipation type Qualified Code(s): K59.00 - Constipation, unspecified Ovarian cyst Qualifiers: Laterality: left Qualified Code(s): N83.202 - Unspecified ovarian cyst, left side Abdominal pain Qualifiers: Abdominal location: right lower quadrant Qualified Code(s): R10.31 - Right lower quadrant pain Condition: Stable Disposition: HOME, SELF-CARE Instructions: Abdominal Pain ([facility]), Constipation ([facility]), Ovarian Cyst ([facility]) Additional Instructions: As we discussed you have been seen and treated in the emergency department for your constipation. Please stay well-hydrated and eat foods that are high in fiber. Please use medications as prescribed. Please also follow-up with a primary care provider. Phone numbers for a provider in your air are in this packet. We have incidentally found that you have a left ovarian cyst. Your ovarian cyst is rather large. Please immediately return to the emergency department should you have significant left lower pelvic pain. Otherwise you should follow-up with [facility], phone numbers will be provided in this packet. Please return to the emergency room for any other concerns. Prescriptions: Docusate Sodium [Colace 100 mg Capsule] 100 mg PO DAILY #30 capsule Polyethylene Glycol 3350 [Miralax] 1 cap PO DAILY #527 powder Forms: Return to Work Referrals: KYLE SIMS DO [NO LOCAL MD] - Follow up as needed SAL KENNY MD [ACTIVE STAFF] - Follow up as needed
[2018-12-26 06:27] LABS: ALBUMIN 3.3 g/dL (3.5-5.0); ALKALINE PHOSPHATASE 27 U/L (38-126); ANION GAP 6 (5-19); ASPARTATE AMINO TRANSFERASE 17 U/L (14-36); BILIRUBIN,DIRECT 0.1 mg/dL (0.0-0.4); BILIRUBIN,TOTAL 0.9 mg/dL (0.2-1.3); BLOOD UREA NITROGEN 11 mg/dL (7-20); CALCIUM 7.7 mg/dL (8.4-10.2); CARBON DIOXIDE 22 mmol/L (22-30); CHLORIDE 113 mmol/L (98-107); GLUCOSE 90 mg/dL (75-110); POTASSIUM 3.4 mmol/L (3.6-5.0); TOTAL PROTEIN 5.8 g/dL (6.3-8.2)
[2018-12-26 06:49] LABS: APPEARANCE,URINE CLEAR; BILIRUBIN,URINE NEGATIVE (NEGATIVE); COLOR,URINE YELLOW; GLUCOSE, URINE NEGATIVE (NEGATIVE); KETONES,URINE NEGATIVE (NEGATIVE); LEUKOCYTE ESTERASE,URINE NEGATIVE (NEGATIVE); NITRITE,URINE NEGATIVE (NEGATIVE); PROTEIN,URINE NEGATIVE (NEGATIVE); URINE SPECIFIC GRAVITY 1.014; UROBILINOGEN,URINE NEGATIVE mg/dL (<2.0)
--- NOTE | 2018-12-26 07:29 | RADIOLOGY REPORT (SQ) ---
EXAM: CT abdomen and pelvis with IV contrast CLINICAL DATA: 28-year-old female with right lower quadrant pain, no bowel movement for one week TECHNICAL DATA: Axial CT imaging of the abdomen and pelvis was performed following the administration of intravenous contrast.. Sagittal and coronal reconstructed images were then performed. The CT study is performed according to ALARA (as low as reasonably achievable) or ALARA/IMAGE GENTLY, with automatic adjustment of mA and/or kV according to patient size. Performed on: 12/26/2018 at 7:04 AM. Comparison: None FINDINGS: Lung bases: The lung bases are clear. Liver:The liver is normal in size and configuration. No focal hepatic abnormalities are identified. Liver attenuation is within normal limits. Spleen:The spleen is normal is size, configuration and attenuation. Gallbladder and bile duct: The gallbladder is well distended and unremarkable. There is no biliary ductal dilatation. Pancreas: The pancreas is grossly normal in size and configuration. Adrenal Glands:The adrenal glands are normal in size and configuration. Kidneys:The kidneys are normal in size and configuration. There is no evidence of hydronephrosis. There is no evidence of nephrolithiasis. No definite solid or cystic renal mass lesions are identified. Stomach:The stomach is grossly normal. There is no definite hiatal hernia. Bowel:The bowel gas pattern is non specific and non obstructive. There is moderate fecal residue in the ascending colon. Appendix: There is no CT evidence of acute appendicitis. Free air:There is no evidence of free air. Free fluid: There is no evidence of free fluid. Vasculature: The aorta is normal in caliber and contour. The inferior vena cava is grossly unremarkable. Lymphadenopathy: No pathologic lymphadenopathy is identified. Bladder: The bladder is partially distended and smooth in contour. Reproductive: The uterus is displaced to the right of midline. There is a large, homogeneous appearing cystic mass in the left adnexal region measuring approximately 7.3 x 8.5 cm in cross-sectional diameter by 7.0 cm in craniocaudal dimension. Bones: No acute osseous abnormalities are identified. A dorsal column stimulator is noted entering the spine at T10-T11. Soft tissues: No focal soft tissue abnormalities are identified. IMPRESSION: 1. Large left adnexal cystic mass measuring 7.3 x 8.5 x 7.0 cm likely ovarian in nature. Recommend follow-up pelvic MRI with IV contrast or surgical evaluation. 2. Moderate fecal residue in the ascending colon without evidence of bowel obstruction. 3. Dorsal column stimulator noted.
[2018-12-26 09:56] VITALS: BP 121/71
== END 2018-12-26 09:57 | disposition home or self-care (01) ==
LOC: ER 05:39
DX: K59.00 Constipation, unspecified (principal); N83.202 Unspecified ovarian cyst, left side; R10.31 Right lower quadrant pain; R11.0 Nausea; I95.9 Hypotension, unspecified; Z88.8 Allergy status to other drugs, medicaments and biological substances
CPT/HCPCS: 36415; 83690; 84703; 85025; 80053; 81001; 74177; J3010; J2405; J7030; 87086; 96361; 96374; 96375; 99284

== ENCOUNTER 2018-12-26 14:48 | Observation (INO) | payer OTHER ==
--- NOTE | 2018-12-26 15:03 | ER Document Report ---
ED Medical Screen (RME) - General Chief Complaint: Flank Pain Stated Complaint: ABDOMINAL PAIN Time Seen by Provider: 12/26/18 15:00 Mode of Arrival: Wheelchair Information source: Patient Notes: 28-year-old female presented to ED for complaint of right-sided abdominal pain flank pain and now is going up to her chest. She was seen here during the night. She had a CT which showed a left ovarian cyst otherwise a negative CT. Labs were done and discussed with patient she also had a large amount of stool on her CT and she was given an enema. She states she has passed a large amount of stool since then. She states the pain is getting worse since she went home. She states she does not have a primary care doctor as yet. I have greeted and performed a rapid initial assessment of this patient. A comprehensive ED assessment and evaluation of the patient, analysis of test results and completion of medical decision making process will be conducted by an additional ED providers. TRAVEL OUTSIDE OF THE [place] IN LAST 30 DAYS: No - Related Data Allergies/Adverse Reactions: prednisone Allergy (Verified 12/26/18 09:48) Past Medical History Renal/ Medical History: Denies: Hx Peritoneal Dialysis Past Surgical History: Reports: Hx Orthopedic Surgery - spinal surgery Physical Exam - Vital signs Vitals: Temp Pulse Resp BP Pulse Ox 97.6 F 64 14 108/61 99 12/26/18 14:53 12/26/18 14:53 12/26/18 14:53 12/26/18 14:53 12/26/18 14:53 Course - Vital Signs Vital signs: Temp Pulse Resp BP Pulse Ox 97.6 F 64 14 108/61 99 12/26/18 14:53 12/26/18 14:53 12/26/18 14:53 12/26/18 14:53 12/26/18 14:53
[2018-12-26 15:38] LABS: ABSOLUTE EOSINOPHILS # (AUTO) 0.1 10^3/uL (0.0-0.6); ABSOLUTE LYMPHOCYTES (AUTO) 1.3 10^3/uL (0.5-4.7); ABSOLUTE MONOCYTES (AUTO) 0.5 10^3/uL (0.1-1.4); ABSOLUTE NEUT (AUTO) 6.4 10^3/uL (1.7-8.2); BASOPHILS % (AUTO) 0.4 % (0-2); EOSINOPHILS % (AUTO) 0.7 % (0-6); HEMATOCRIT 38.3 % (36.0-47.0); HEMOGLOBIN 13.1 g/dL (12.0-15.5); LYMPHOCYTES % (AUTO) 15.4 % (13-45); MEAN CORPUSCULAR HEMOGLOBIN 31.5 pg (27.0-33.4); MEAN CORPUSCULAR HGB CONC 34.3 g/dL (32.0-36.0); MEAN CORPUSCULAR VOLUME 92 fl (80-97); MONOCYTES % (AUTO) 6.5 % (3-13); PLATELET COUNT 200 10^3/uL (150-450); RED BLOOD COUNT 4.16 10^6/uL (3.72-5.28); RED CELL DISTRIBUTION WIDTH 12.1 % (11.5-14.0); TOTAL CELLS COUNTED % (AUTO) 100 %; WHITE BLOOD COUNT 8.3 10^3/uL (4.0-10.5)
[2018-12-26 15:43] LABS: APPEARANCE,URINE CLEAR; BILIRUBIN,URINE NEGATIVE (NEGATIVE); COLOR,URINE YELLOW; GLUCOSE, URINE NEGATIVE (NEGATIVE); KETONES,URINE NEGATIVE (NEGATIVE); PROTEIN,URINE NEGATIVE (NEGATIVE); URINE SPECIFIC GRAVITY 1.016; UROBILINOGEN,URINE NEGATIVE mg/dL (<2.0)
--- NOTE | 2018-12-26 15:45 | RADIOLOGY REPORT (SQ) ---
EXAM DESCRIPTION: CHEST 2 VIEWS COMPLETED DATE/TIME: 12/26/2018 3:32 pm REASON FOR STUDY: Abdominal pain/chest pain COMPARISON: 03/13/2017. EXAM PARAMETERS: NUMBER OF VIEWS: two views TECHNIQUE: Digital Frontal and Lateral radiographic views of the chest acquired. RADIATION DOSE: NA LIMITATIONS: none FINDINGS: LUNGS AND PLEURA: No opacities, masses or pneumothorax. No pleural effusion. MEDIASTINUM AND HILAR STRUCTURES: No masses or contour abnormalities. HEART AND VASCULAR STRUCTURES: Heart normal size. No evidence for failure. BONES: No acute findings. HARDWARE: Spinal stimulator electrodes. OTHER: No other significant finding. IMPRESSION: NO ACUTE RADIOGRAPHIC FINDING IN THE CHEST. TECHNICAL DOCUMENTATION: JOB ID: [id number] [employer]- All Rights Reserved Reading location - IP/workstation name: [email or web address]
[2018-12-26 15:56] LABS: ALBUMIN 4.4 g/dL (3.5-5.0); ALKALINE PHOSPHATASE 34 U/L (38-126); ANION GAP 9 (5-19); ASPARTATE AMINO TRANSFERASE 18 U/L (14-36); BILIRUBIN,TOTAL 1.7 mg/dL (0.2-1.3); BLOOD UREA NITROGEN 8 mg/dL (7-20); CALCIUM 9.2 mg/dL (8.4-10.2); CARBON DIOXIDE 26 mmol/L (22-30); CHLORIDE 106 mmol/L (98-107); GLUCOSE 101 mg/dL (75-110); POTASSIUM 4.3 mmol/L (3.6-5.0); TOTAL PROTEIN 7.1 g/dL (6.3-8.2)
[2018-12-26 15:58] LABS: URINE AMPHETAMINES SCREEN NEGATIVE; URINE BARBITURATES SCREEN NEGATIVE; URINE BENZODIAZEPINES SCREEN NEGATIVE; URINE COCAINE SCREEN NEGATIVE; URINE MARIJUANA (THC) SCREEN NEGATIVE; URINE METHADONE SCREEN NEGATIVE; URINE PHENCYCLIDINE SCREEN NEGATIVE
[2018-12-26] MEDS ORDERED: KETOROLAC TROMETHAMINE 60 MG/2 ML SDV IM ONE (16:49)
--- NOTE | 2018-12-26 17:15 | ER Document Report ---
ED GI/ - General Mode of Arrival: Wheelchair TRAVEL OUTSIDE OF THE [place] IN LAST 30 DAYS: No <OBINNA GONZALEZ - Last Filed: 12/26/18 20:06> <STEFFI MCKEON - Last Filed: 12/26/18 22:31> - General Chief Complaint: Abdominal Pain Stated Complaint: ABDOMINAL PAIN Time Seen by Provider: 12/26/18 15:00 Notes: Patient is a 28-year-old female presenting to the emergency department with complaints of abdominal pain. Patient was actually seen in this emergency department early this morning discharged home with a diagnosis of constipation. She had a negative work-up today including CT scan. She presents back to the ED with persistent right lower quadrant pain that has now radiated up to the right upper quadrant of her chest and into her back. Patient denies any nausea, vomiting, diarrhea or fever. She denies any pelvic pain or abnormal vaginal discharge. She reports she has had constipation in the past and this does not feel like constipation pain. (OBINNA GONZALEZ) - Related Data Allergies/Adverse Reactions: prednisone Allergy (Verified 12/26/18 09:48) Past Medical History - General Information source: Patient - Social History Smoking Status: Never Smoker Family History: Reviewed & Not Pertinent Patient has suicidal ideation: No Patient has homicidal ideation: No - Medical History Medical History: Negative Renal/ Medical History: Denies: Hx Peritoneal Dialysis Past Surgical History: Reports: Hx Orthopedic Surgery - spinal surgery - Immunizations Immunizations up to date: Yes <OBINNA GONZALEZ - Last Filed: 12/26/18 20:06> Review of Systems - Review of Systems Constitutional: No symptoms reported EENT: No symptoms reported Cardiovascular: No symptoms reported Respiratory: No symptoms reported Gastrointestinal: Abdominal pain - RLQ/RUQ, Constipation, Blood streaked bowels Genitourinary: Flank pain - Right Female Genitourinary: No symptoms reported Musculoskeletal: No symptoms reported Skin: No symptoms reported Hematologic/Lymphatic: No symptoms reported Neurological/Psychological: No symptoms reported <OBINNA GONZALEZ - Last Filed: 12/26/18 20:06> Physical Exam <OBINNA GONZALEZ - Last Filed: 12/26/18 20:06> - Vital signs Vitals: Temp Pulse Resp BP Pulse Ox 97.6 F 64 14 108/61 99 12/26/18 14:53 12/26/18 14:53 12/26/18 14:53 12/26/18 14:53 12/26/18 14:53 - Notes Notes: PHYSICAL EXAMINATION: GENERAL: Well-appearing, well-nourished and in no acute distress. HEAD: Atraumatic, normocephalic. EYES: Pupils equal round and reactive to light, extraocular movements intact, conjunctiva are normal. ENT: Nares patent, oropharynx clear without exudates. Moist mucous membranes. NECK: Normal range of motion, supple without lymphadenopathy LUNGS: Breath sounds clear to auscultation bilaterally and equal. No wheezes ra les or rhonchi. HEART: Regular rate and rhythm without murmurs ABDOMEN: Soft, nondistended abdomen. TTP RLQ and mid abd. No guarding, no rebound. No masses appreciated. Female : No CVA tenderness to percussion. Patient declined pelvic exam. Musculoskeletal: Normal range of motion, no pitting or edema. No cyanosis. NEUROLOGICAL: Cranial nerves grossly intact. Normal speech, normal gait. Normal sensory, motor exams PSYCH: Normal mood, normal affect. SKIN: Warm, Dry, normal turgor, no rashes or lesions noted. (OBINNA GONZALEZ) Course - Laboratory Result Diagrams: 12/26/18 15:15 12/26/18 15:15 <OBINNA GONZALEZ - Last Filed: 12/26/18 20:06> - Laboratory Result Diagrams: 12/26/18 15:15 12/26/18 15:15 <STEFFI MCKEON - Last Filed: 12/26/18 22:31> - Re-evaluation Re-evalutation: Laboratory 12/26/18 12/26/18 12/26/18 15:15 15:15 15:15 WBC 8.3 RBC 4.16 Hgb 13.1 Hct 38.3 MCV 92 MCH 31.5 MCHC 34.3 RDW 12.1 Plt Count 200 Lymph % (Auto) 15.4 [place] % (Auto) 6.5 Eos % (Auto) 0.7 Baso % (Auto) 0.4 Absolute Neuts (auto) 6.4 Absolute Lymphs (auto) 1.3 Absolute Monos (auto) 0.5 Absolute Eos (auto) 0.1 Absolute Basos (auto) 0.0 Seg Neutrophils % 77.0 Sodium 140.6 Potassium 4.3 Chloride 106 Carbon Dioxide 26 Anion Gap 9 BUN 8 Creatinine 0.74 Est GFR ( Amer) > 60 Est GFR (MDRD) Non-Af > 60 Glucose 101 Calcium 9.2 Total Bilirubin 1.7 H Direct Bilirubin 0.0 Neonat Total Bilirubin Not Reportable Neonat Direct Bilirubin Not Reportable Neonat Indirect Bili Not Reportable AST 18 ALT 13 Alkaline Phosphatase 34 L Total Protein 7.1 Albumin 4.4 Urine Color YELLOW Urine Appearance CLEAR Urine pH 6.0 Ur Specific Gray 1.016 Urine Protein NEGATIVE Urine Glucose (UA) NEGATIVE Urine Ketones NEGATIVE Urine Blood NEGATIVE Urine Nitrite (Reflex) NEGATIVE Urine Bilirubin NEGATIVE Urine Urobilinogen NEGATIVE Leukocyte Esterase Rfl NEGATIVE Urine RBC (Auto) 0 Urine Bacteria (Auto) TRACE Urine WBC (Reflex) < 1 Squamous Epi Cells Auto 1 Urine Ascorbic Acid NEGATIVE Urine Opiates Screen Urine Methadone Screen Ur Barbiturates Screen Ur Phencyclidine Scrn Ur Amphetamines Screen U Benzodiazepines Scrn Urine Cocaine Screen U Marijuana (THC) Screen 12/26/18 15:15 WBC RBC Hgb Hct MCV MCH MCHC RDW Plt Count Lymph % (Auto) [place] % (Auto) Eos % (Auto) Baso % (Auto) Absolute Neuts (auto) Absolute Lymphs (auto) Absolute Monos (auto) Absolute Eos (auto) Absolute Basos (auto) Seg Neutrophils % Sodium Potassium Chloride Carbon Dioxide Anion Gap BUN Creatinine Est GFR ( Amer) Est GFR (MDRD) Non-Af Glucose Calcium Total Bilirubin Direct Bilirubin Neonat Total Bilirubin Neonat Direct Bilirubin Neonat Indirect Bili AST ALT Alkaline Phosphatase Total Protein Albumin Urine Color Urine Appearance Urine pH Ur Specific Gray Urine Protein Urine Glucose (UA) Urine Ketones Urine Blood Urine Nitrite (Reflex) Urine Bilirubin Urine Urobilinogen Leukocyte Esterase Rfl Urine RBC (Auto) Urine Bacteria (Auto) Urine WBC (Reflex) Squamous Epi Cells Auto Urine Ascorbic Acid Urine Opiates Screen NEGATIVE Urine Methadone Screen NEGATIVE Ur Barbiturates Screen NEGATIVE Ur Phencyclidine Scrn NEGATIVE Ur Amphetamines Screen NEGATIVE U Benzodiazepines Scrn NEGATIVE Urine Cocaine Screen NEGATIVE U Marijuana (THC) Screen NEGATIVE 12/26/18 20:12 Chest X-Ray 12/26/18 15:03 IMPRESSION: NO ACUTE RADIOGRAPHIC FINDING IN THE CHEST. Abdomen Ultrasound 12/26/18 16:48 IMPRESSION: NORMAL RIGHT UPPER QUADRANT ULTRASOUND. Dr. Garcia went to the bedside to evaluate the patient. His recommendation is to do a transvaginal ultrasound to rule out an ovarian torsion. Handoff given to oncoming cage shift manager ALPESH Mckeon. (OBINNA GONZALEZ) 12/26/18 22:26 I have spoken with PAYLOADER OPERATOR Dr. Villagran. She would like the patient admitted for pain control, states she will hopefully take the patient to the operating room in the morning. Patient initially was refusing narcotic pain medicine. I have rediscussed with patient at bedside and she is willing to take narcotic pain medication at this time. Patient voices her pain is still 10 out of 10. Patient voices at the time she will take narcotic pain medication. Patient continues to decline pelvic exam. I have also discussed doing self swabs. Patient continues to decline. Patient voices "can't you do all that stuff tomorrow when I am asleep." Discussed with patient at bedside she is to be n.p.o. at midnight. (STEFFI MCKEON) - Vital Signs Vital signs: Temp Pulse Resp BP Pulse Ox 97.6 F 64 14 108/61 99 12/26/18 14:53 12/26/18 14:53 12/26/18 14:53 12/26/18 14:53 12/26/18 14:53 - Laboratory Laboratory results interpreted by me: 12/26/18 15:15 Total Bilirubin 1.7 H Alkaline Phosphatase 34 L Discharge <OBINNA GONZALEZ - Last Filed: 12/26/18 20:06> - Discharge Admitting Provider: Dr. Villagran Unit Admitted: Labor and Delivery <STEFFI MCKEON - Last Filed: 12/26/18 22:31> - Discharge Clinical Impression: Ovarian cyst Qualifiers: Laterality: left Qualified Code(s): N83.202 - Unspecified ovarian cyst, left side Condition: Stable Disposition: ADMITTED INPATIENT
[2018-12-26] MEDS ORDERED: DICYCLOMINE HCL INJ 20 MG/2 ML AMPULE IM ONE (18:58)
--- NOTE | 2018-12-26 19:41 | RADIOLOGY REPORT (SQ) ---
EXAM DESCRIPTION: U/S ABDOMEN LIMITED W/O DOP COMPLETED DATE/TIME: 12/26/2018 7:00 pm REASON FOR STUDY: RLQ/RUQ pain rad into chest/back COMPARISON: None. TECHNIQUE: Dynamic and static grayscale images acquired of the abdomen and recorded on PACS. Adan king selected color Doppler and spectral images recorded. LIMITATIONS: None. FINDINGS: PANCREAS: No masses. Visualized pancreatic duct normal caliber. LIVER: No masses. Echotexture normal. LIVER VASCULATURE: Normal directional flow of the main portal vein and hepatic veins. GALLBLADDER: No stones. Normal wall thickness. No pericholecystic fluid. ULTRASOUND-DETECTED MACIEL'S SIGN: Negative. INTRAHEPATIC DUCTS AND COMMON DUCT: CBD and intrahepatic ducts normal caliber. No filling defects. INFERIOR VENA CAVA: Normal flow. AORTA: No aneurysm. RIGHT KIDNEY: Normal size. Normal echogenicity. No solid or suspicious masses. No hydronephrosis. No calcifications. PERITONEAL AND RIGHT PLEURAL SPACE: No ascites or effusions. OTHER: No other significant findings. IMPRESSION: NORMAL RIGHT UPPER QUADRANT ULTRASOUND. TECHNICAL DOCUMENTATION: JOB ID: [id number]- All Rights Reserved Reading location - IP/workstation name: [email or web address]
--- NOTE | 2018-12-26 21:00 | RADIOLOGY REPORT (SQ) ---
EXAM DESCRIPTION: US PELVIS TRANSVAGINAL COMPLETED DATE/TME: 12/26/2018 19:31 CLINICAL HISTORY: 28 years, Female, eval for torsion COMPARISON: Prior CT from earlier the same day TECHNIQUE: Axial 2-D grayscale images of the pelvis were acquired. Doppler was utilized. LIMITATIONS: None. FINDINGS: Uterus measures 8.9 x 5.3 x 4.0 cm in size. Cervix is closed, measuring 2.8 cm in length. Endometrial stripe thickness is 1.5 cm, within normal limits for a premenopausal female. Right ovary measures 2.7 x 4.4 x 2.1 cm in size. It demonstrates normal echogenicity as well as normal low resistance arterial waveforms/venous flow. Left ovary measures 7.6 x 9.1 x 6.1 cm in size. It contains fairly homogenous iso to slightly hypoechoic lesion measuring 6.6 x 5.4 x 7.1 cm in size without internal Doppler flow. The left ovary itself demonstrates normal low resistance arterial waveforms as well as venous flow. In addition, there is a suspected small amount of hypoechoic material located within the left adnexa. IMPRESSION: Large, homogenous iso to slightly hypoechoic mass located within the left adnexa. The etiology of this finding is uncertain though this potentially represents a large endometrioma or hemorrhagic cyst. A small amount of hemoperitoneum may be evident about the left adnexa. Given this lesion's large size, correlation with pelvic MRI with IV contrast or surgical evaluation is recommended. No definitive evidence of ovarian torsion. copyright 2010 [employer]- All Rights Reserved
[2018-12-26] MEDS ORDERED: ONDANSETRON HCL INJ/PF 4 MG/2 ML SDV IV ONE (22:25)
[2018-12-26] MEDS: HYDROMORPHONE HCL INJ/PF 2 MG/ML AMPULE IV PRN (22:42)
--- NOTE | 2018-12-27 00:24 | PDOC H&P ---
History of Present Illness Admission Date/PCP: 12/26/18 22:35 Patient complains of: Right sided pelvis pain History of Present Illness: SHAJI PACE is a 28 year old female GO with no fertility desires ( is planning to carry pregnancies) who was seen twice in the ER on 12/26 for pelvic pain. Her first visit was dx with constipation. She reports that the pain did not really improve and that she was sent home and the became worse and then she came back into the ER with her . She reports that she has heavy periods and has always had very painful menses. She was told on her first visit in the ER that she had a large left ovarian cyst but that initially they did not feel that was the cause because it was on the wrong side. She is now finally comfortable with Dilaudid. She has an Interstim nerve stimulator for back pain. She and her are moving to [facility] in 2wks. Past Medical History Gynecological Infection: No Medical History: None Pulmonary Medical History: Reports: None EENT Medical History: Reports: None Malignancy Medical History: Reports: None Past Surgical History Past Surgical History: Reports: Orthopedic Surgery - spinal surgery, Other - Interstim placement Social History Information Source: Patient, Relative Lives with: Spouse/Significant other Smoking Status: Never Smoker Electronic Cigarette use?: No Frequency of Alcohol Use: None Hx Recreational Drug Use: No Drugs: None Hx Prescription Drug Abuse: No Family History Family History: Reviewed & Not Pertinent Parental Family History Reviewed: No Children Family History Reviewed: NA Sibling(s) Family History Reviewed.: NA Medication/Allergy Home Medications: Baclofen 20 mg PO BID 07/15/17 Meloxicam [Mobic] 15 mg PO DAILY 07/15/17 Glycerin [Glycerin Laxative] 5.4 gm RC ASDIR PRN #7 ml 09/04/17 Magnesium Hydroxide [Milk of Magnesia] 2,400 mg PO BID #1 bottle 09/04/17 Polyethylene Glycol 3350 [Miralax Powder 17 gm/Packet] 1 packet PO DAILY #10 pkg 09/04/17 Meclizine HCl [Antivert 25 mg Tablet] 25 mg PO ASDIR PRN #15 tablet 10/24/17 Promethazine HCl [Phenergan 25 mg Tablet] 25 mg PO Q6H PRN #10 tablet 10/24/17 Docusate Sodium [Colace 100 mg Capsule] 100 mg PO DAILY #30 capsule 10/21/19 Polyethylene Glycol 3350 [Miralax] 1 cap PO DAILY #527 powder 12/26/18 Allergies/Adverse Reactions: prednisone Allergy (Verified 12/26/18 09:48) Review of Systems Constitutional: ABSENT: chills, fever(s), headache(s), weight gain, weight loss Cardiovascular: ABSENT: chest pain, dyspnea on exertion, edema, orthropnea, palpitations Respiratory: ABSENT: cough, hemoptysis Gastrointestinal: ABSENT: abdominal pain, constipation, diarrhea, hematemesis, hematochezia, nausea, vomiting Genitourinary: ABSENT: dysuria, hematuria Integumentary: ABSENT: rash, wounds Neurological: ABSENT: abnormal gait, abnormal speech, confusion, dizziness, focal weakness, syncope Psychiatric: PRESENT: as per HPI Hematologic/Lymphatic: ABSENT: easy bleeding, easy bruising Physical Exam - Physical Exam Vital Signs: Temp Pulse Resp BP Pulse Ox 97.6 F 64 14 108/61 99 12/26/18 14:53 12/26/18 14:53 12/26/18 14:53 12/26/18 14:53 12/26/18 14:53 Intake & Output 12/25/18 12/26/18 12/27/18 06:59 06:59 06:59 Weight 74.3 kg General appearance: PRESENT: no acute distress, well-developed, well-nourished Respiratory exam: PRESENT: clear to auscultation kiera, symmetrical, unlabored Pulses: PRESENT: normal dorsalis pedis pul, +2 pedal pulses bilateral GI/Abdominal exam: PRESENT: guarding, normal bowel sounds, soft, tenderness Rectal exam: PRESENT: deferred Extremities exam: PRESENT: full ROM. ABSENT: calf tenderness, clubbing, pedal edema Neurological exam: PRESENT: alert, awake, oriented to person, oriented to place, oriented to time, oriented to situation, CN II-XII grossly intact. ABSENT: motor sensory deficit Psychiatric exam: PRESENT: appropriate affect, normal mood. ABSENT: homicidal ideation, suicidal ideation Result Laboratory Results: 12/26/18 15:15 12/26/18 15:15 12/26/18 12/26/18 12/26/18 15:15 15:15 15:15 WBC 8.3 RBC 4.16 Hgb 13.1 Hct 38.3 MCV 92 MCH 31.5 MCHC 34.3 RDW 12.1 Plt Count 200 Seg Neutrophils % 77.0 Sodium 140.6 Potassium 4.3 Chloride 106 Carbon Dioxide 26 Anion Gap 9 BUN 8 Creatinine 0.74 Est GFR ( Amer) > 60 Glucose 101 Calcium 9.2 Total Bilirubin 1.7 H AST 18 Alkaline Phosphatase 34 L Total Protein 7.1 Albumin 4.4 Urine Color YELLOW Urine Appearance CLEAR Urine pH 6.0 Ur Specific [place] 1.016 Urine Protein NEGATIVE Urine Glucose (UA) NEGATIVE Urine Ketones NEGATIVE Urine Blood NEGATIVE Urine RBC (Auto) 0 Impressions: Chest X-Ray 12/26/18 15:03 IMPRESSION: NO ACUTE RADIOGRAPHIC FINDING IN THE CHEST. Abdomen Ultrasound 12/26/18 16:48 IMPRESSION: NORMAL RIGHT UPPER QUADRANT ULTRASOUND. Transvaginal US 12/26/18 19:31 IMPRESSION: Large, homogenous iso to slightly hypoechoic mass located within the left adnexa. The etiology of this finding is uncertain though this potentially represents a large endometrioma or hemorrhagic cyst. A small amount of hemoperitoneum may be evident about the left adnexa. Given this lesion's large size, correlation with pelvic MRI with IV contrast or surgical evaluation is recommended. No definitive evidence of ovarian torsion. copyright 2010 [employer]- All Rights Reserved Status: Imported from PACS Assessment & Plan - Diagnosis (1) Ovarian cyst Qualifiers: Laterality: left Qualified Code(s): N83.202 - Unspecified ovarian cyst, left side Is this a current diagnosis for this admission?: Yes Plan: Very large 7.6 x 9.1 x 6.1cm mass. poss endomtrioma. Pt with significant pain requiring narcotics. No e/o torsion. Patient added on to OR scheduled and plan for NPO after midnight. (2) Abdominal pain Qualifiers: Abdominal location: right lower quadrant Qualified Code(s): R10.31 - Right lower quadrant pain Is this a current diagnosis for this admission?: Yes Plan: see above - Time Time Spent: 30 to 50 Minutes Medications reviewed and adjusted accordingly: Yes Anticipated discharge: Home Within: within 24 hours - Inpatient Certification Based on my medical assessment, after consideration of the patient's comorbidities, presenting symptoms, or acuity I expect that the services needed warrant INPATIENT care.: Yes I certify that my determination is in accordance with my understanding of Medicare's requirements for reasonable and necessary INPATIENT services [42 CFR 412.3e].: Yes Medical Necessity: Need Close Monitoring Due to Risk of Patient Decompensation, Need For IV Fluids, Need for Pain Control, Need for Surgery
[2018-12-27] MEDS: HYDROMORPHONE HCL INJ/PF 2 MG/ML AMPULE IV PRN ×3 (03:02→10:23)
[2018-12-27] MEDS: ONDANSETRON HCL INJ/PF 4 MG/2 ML SDV IV PRN ×2 (04:37→08:58)
[2018-12-27 07:06] LABS: CHLAM PCR NOT DETECTED (NOT DETECT)
[2018-12-27] MEDS ORDERED: ROCURONIUM BROMIDE INJ 50 MG/5 ML VIAL IV ONE (09:15)
[2018-12-27] MEDS ORDERED: GLYCOPYRROLATE 1 MG/5 ML VIAL ONE (09:15)
[2018-12-27] MEDS ORDERED: SUCCINYLCHOLINE CHLORIDE INJ 200 MG/10 ML VIAL ONE (09:15)
[2018-12-27] MEDS ORDERED: ONDANSETRON HCL INJ/PF 4 MG/2 ML SDV ONE (09:15)
[2018-12-27] MEDS ORDERED: KETOROLAC TROMETHAMINE 60 MG/2 ML SDV ONE (09:15)
[2018-12-27] MEDS ORDERED: DEXAMETHASONE SOD PHOSPHATE INJ 4 MG/1 ML VIAL ONE (09:15)
[2018-12-27] MEDS ORDERED: NEOSTIGMINE METHYLSULFATE 10 MG/10 ML VIAL ONE (09:15)
[2018-12-27] MEDS ORDERED: CEFAZOLIN 1 GM/D5W RTU 1 GM/50 ML RTUPB IV SCH (12:00)
[2018-12-27] MEDS ORDERED: RINGERS SOLUTION,LACTATED 1,000 ML IV PRN ×2 (13:04→15:12)
[2018-12-27] MEDS ORDERED: PROPOFOL INJ 200 MG/20 ML VIAL IV ONE (13:06)
[2018-12-27] MEDS ORDERED: FENTANYL CITRATE INJ/PF 250 MCG/5 ML AMPULE ONE (13:06)
[2018-12-27] MEDS ORDERED: MIDAZOLAM 2 MG/2 ML INJ ONE (13:06)
[2018-12-27] MEDS ORDERED: SCOPOLAMINE HYDROBROMIDE 1.5 MG PATCH.TD72 ONE (13:24)
[2018-12-27] MEDS: CEFAZOLIN SODIUM 1 GM in DEXTROSE 5%-WATER 50 ML IV SCH ×2 (13:36→17:39)
[2018-12-27] MEDS ORDERED: MEPERIDINE HCL/PF INJ 25 MG/1 ML DISP.SYRIN IV PRN (14:21)
[2018-12-27] MEDS ORDERED: OXYCODONE-ACETAMINOPHEN 5-325 MG TABLET PO PRN ×4 (14:21→15:12)
[2018-12-27] MEDS ORDERED: DIPHENHYDRAMINE HCL 50 MG/ML VIAL IV PRN (14:21)
[2018-12-27] MEDS ORDERED: FENTANYL CITRATE INJ/PF 100 MCG/2 ML AMPUL IV PRN ×3 (14:21)
[2018-12-27] MEDS ORDERED: ONDANSETRON HCL INJ/PF 4 MG/2 ML SDV IV PRN (14:21)
[2018-12-27] MEDS ORDERED: MORPHINE SULFATE 10 MG/ML INJ IV PRN (14:21)
[2018-12-27] MEDS ORDERED: PROMETHAZINE HCL INJ 25 MG/1 ML VIAL IV PRN ×3 (14:21→15:12)
[2018-12-27] MEDS ORDERED: ACETAMINOPHEN 1,000 MG/100 ML RTUPB IV PRN (15:12)
[2018-12-27] MEDS ORDERED: DIPH/PERTUSS(ACELL)/TETANUS VAC/PF 0.5 ML SYR (>=10YO) IM PRN (15:12)
[2018-12-27] MEDS ORDERED: HYDROMORPHONE HCL INJ/PF 2 MG/ML AMPULE IV PRN (15:12)
[2018-12-27] MEDS ORDERED: MEASLES,MUMPS&RUBELLA VACC/PF 0.5 ML VIAL SUBCUT PRN (15:12)
[2018-12-27] MEDS ORDERED: ACETAMINOPHEN 325 MG TABLET PO PRN (15:12)
[2018-12-27] MEDS ORDERED: SIMETHICONE 80 MG TAB.CHEW PO PRN (15:12)
--- NOTE | 2018-12-27 15:23 | Operative Report ---
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 Mild petechiae of the anterior cul-de-sac and posterior cul-de-sac. PROCEDURE: Patient was taken to the operating room prepared and draped in a normal sterile fashion in the dorsolithotomy position. A Stanton catheter was placed to gravity. Sterile speculum was placed into the vagina and a single-tooth tenaculum was placed on the cervix. A sterile speculum was removed and gloves were changed and attention was turned to the upper portion of the case. A umbilical skin incision was made to accommodate a 5 mm trocar. There is needle was introduced with free flow of sterile water confirming the peritoneal cavity placement. Abdomen wound was inflated with approximately 2 L of CO2 gas. Needle was removed and a 5 mm trocar was placed through this incision. Introduced and the patient was placed in Trendelenburg with the above findings noted. A 5 mm port was placed in the left lower quadrant under direct visualization and a 10 mm port was placed in the right lower quadrant under direct visualization. The ovary was localized and pictures were taken. The ovary was manipulated and a LigaSure was introduced through the left trocar. The IP ligament was located and this was transected using the LigaSure through following the mesosalpinx to the utero-ovarian ligament was then also transected using the LigaSure. Then noted that the ovary was not completely freed and noted that there was several adhesions the ovary to the lower left pelvic sidewall. These adhesions were carefully localized in and ligated using the LigaSure. Once the ovary was completely freed then placed into the Endo Catch bag that had been placed through the 10 mm port. The ovary was then held away and we began copious suction irrigation of the peritoneal cavity remove the hemoperitoneum. The 2- lead 2-1/2 L of irrigation were used for evacuation. The Endo Catch bag and ovarian cyst were then removed with careful morcellation within the Endo Catch bag through the right lower quadrant port site. Once again suction irrigated copiously using sterile water peritoneal to attempt to irrigate the remaining pieces of old blood clot that were left. Once I irrigated his as much as I could and removed as much of the old blood as I could the case was then concluded fascia was closed at the right lower quadrant point using 0 Vicryl. Again was closed all 3 sites using 4-0 Vicryl. The patient tolerated procedure well sponge lap and needle counts were correct x2. Stanton catheter was removed in the OR and the tenaculum was also removed from the vagina in the OR. The patient was taken to recovery in stable condition
[2018-12-27] MEDS ORDERED: ACETAMINOPHEN 1,000 MG/100 ML RTUPB IV ONE (15:24)
[2018-12-27] MEDS ORDERED: FENTANYL CITRATE INJ/PF 100 MCG/2 ML AMPUL ONE (15:24)
[2018-12-27] MEDS ORDERED: DOCUSATE SODIUM 100 MG CAPSULE PO SCH (18:00)
[2018-12-27] MEDS: KETOROLAC TROMETHAMINE INJ/PF 30 MG/1 ML SDV IV SCH (21:45)
[2018-12-28] MEDS: CEFAZOLIN SODIUM 1 GM in DEXTROSE 5%-WATER 50 ML IV SCH ×2 (00:11→05:40)
[2018-12-28] MEDS: KETOROLAC TROMETHAMINE INJ/PF 30 MG/1 ML SDV IV SCH (05:41)
[2018-12-28 08:19] LABS: HEMATOCRIT 34.7 % (36.0-47.0); HEMOGLOBIN 11.9 g/dL (12.0-15.5); MEAN CORPUSCULAR HEMOGLOBIN 31.5 pg (27.0-33.4); MEAN CORPUSCULAR HGB CONC 34.2 g/dL (32.0-36.0); MEAN CORPUSCULAR VOLUME 92 fl (80-97); PLATELET COUNT 193 10^3/uL (150-450); RED BLOOD COUNT 3.78 10^6/uL (3.72-5.28); RED CELL DISTRIBUTION WIDTH 12.3 % (11.5-14.0); WHITE BLOOD COUNT 9.9 10^3/uL (4.0-10.5)
[2018-12-28 08:54] VITALS: BP 110/66
[2018-12-28] MEDS ORDERED: PRENATAL VITAMIN W DHA CAPSULE PO SCH (10:00)
[2018-12-28] MEDS ORDERED: IBUPROFEN 800 MG TABLET PO SCH (18:00)
--- NOTE | 2019-01-12 08:25 | PDOC DISCHARGE SUMMARY ---
Impression - Admit/DC Date/PCP Admission Date/Primary Care Provider: 12/26/18 22:35 Discharge Date: 12/28/18 - Discharge Diagnosis (1) Ovarian cyst Is this a current diagnosis for this admission?: Yes (2) Abdominal pain Is this a current diagnosis for this admission?: Yes (3) Constipation Is this a current diagnosis for this admission?: Yes - Assessment Summary: patient admitted with 9 cm left ovarian cyst and underwent laparoscopic LSO w/ evacuation of hemoperitoneum and Lysis of adhesions. She is now feeling much better, she indicates improved bladder control, passing flatus, tolerating regular diet. Ready for discharge home. - Additional Information Resuscitation Status: Full Code Discharge Diet: As Tolerated Discharge Activity: Balance Activity w/Rest, No Driving, No Lifting Over 10 Pounds Referrals: OVIDIO MELVIN MD [ACTIVE STAFF] - 01/04/19 9:30 am (PLEASE CALL THE OFFICE FOR ANY QUESTION OR CONCERNS.) Prescriptions: Docusate Sodium [Colace 100 mg Capsule] 100 mg PO BID #60 capsule Cyclobenzaprine HCl [Flexeril 5 mg Tablet] 5 mg PO TID PRN #15 tablet PRN Reason: Ibuprofen [Motrin 800 mg Tablet] 800 mg PO Q6 #60 tablet Simethicone 125 mg PO BID #60 capsule Home Medications: Cyclobenzaprine HCl [Flexeril 5 mg Tablet] 5 mg PO TID PRN #15 tablet 12/28/18 Docusate Sodium [Colace 100 mg Capsule] 100 mg PO BID #60 capsule 12/28/18 Ibuprofen [Motrin 800 mg Tablet] 800 mg PO Q6 #60 tablet 12/28/18 Simethicone 125 mg PO BID #60 capsule 12/28/18 History of Present Illiness History of Present Illness: SHAJI PACE is a 28 year old female Physical Exam - Physical Exam Vital Signs: Temp Pulse Resp BP Pulse Ox 98.4 F 57 L 16 118/50 L 97 12/28/18 05:28 12/28/18 05:28 12/28/18 05:28 12/28/18 05:28 12/28/18 05:28 Intake & Output 12/27/18 12/28/18 12/29/18 06:59 06:59 06:59 Intake Total 2200 Balance 2200 Weight 74.3 kg Results Laboratory Results: WBC 8.3 10^3/uL (4.0-10.5) 12/26/18 15:15 RBC 4.16 10^6/uL (3.72-5.28) 12/26/18 15:15 Hgb 13.1 g/dL (12.0-15.5) 12/26/18 15:15 Hct 38.3 % (36.0-47.0) 12/26/18 15:15 MCV 92 fl (80-97) 12/26/18 15:15 MCH 31.5 pg (27.0-33.4) 12/26/18 15:15 MCHC 34.3 g/dL (32.0-36.0) 12/26/18 15:15 RDW 12.1 % (11.5-14.0) 12/26/18 15:15 Plt Count 200 10^3/uL (150-450) 12/26/18 15:15 Lymph % (Auto) 15.4 % (13-45) 12/26/18 15:15 [place] % (Auto) 6.5 % (3-13) 12/26/18 15:15 Eos % (Auto) 0.7 % (0-6) 12/26/18 15:15 Baso % (Auto) 0.4 % (0-2) 12/26/18 15:15 Absolute Neuts (auto) 6.4 10^3/uL (1.7-8.2) 12/26/18 15:15 Absolute Lymphs (auto) 1.3 10^3/uL (0.5-4.7) 12/26/18 15:15 Absolute Monos (auto) 0.5 10^3/uL (0.1-1.4) 12/26/18 15:15 Absolute Eos (auto) 0.1 10^3/uL (0.0-0.6) 12/26/18 15:15 Absolute Basos (auto) 0.0 10^3/uL (0.0-0.2) 12/26/18 15:15 Seg Neutrophils % 77.0 % (42-78) 12/26/18 15:15 Sodium 140.6 mmol/L (137-145) 12/26/18 15:15 Potassium 4.3 mmol/L (3.6-5.0) 12/26/18 15:15 Chloride 106 mmol/L (98-107) 12/26/18 15:15 Carbon Dioxide 26 mmol/L (22-30) 12/26/18 15:15 Anion Gap 9 (5-19) 12/26/18 15:15 BUN 8 mg/dL (7-20) 12/26/18 15:15 Creatinine 0.74 mg/dL (0.52-1.25) 12/26/18 15:15 Est GFR ( Amer) > 60 (>60) 12/26/18 15:15 Est GFR (MDRD) Non-Af > 60 (>60) 12/26/18 15:15 Glucose 101 mg/dL (75-110) 12/26/18 15:15 Calcium 9.2 mg/dL (8.4-10.2) 12/26/18 15:15 Total Bilirubin 1.7 mg/dL (0.2-1.3) H 12/26/18 15:15 Direct Bilirubin 0.0 mg/dL (0.0-0.4) 12/26/18 15:15 Neonat Total Bilirubin Not Reportable 12/26/18 15:15 Neonat Direct Bilirubin Not Reportable 12/26/18 15:15 Neonat Indirect Bili Not Reportable 12/26/18 15:15 AST 18 U/L (14-36) 12/26/18 15:15 ALT 13 U/L (<35) 12/26/18 15:15 Alkaline Phosphatase 34 U/L (38-126) L 12/26/18 15:15 Total Protein 7.1 g/dL (6.3-8.2) 12/26/18 15:15 Albumin 4.4 g/dL (3.5-5.0) 12/26/18 15:15 Urine Color YELLOW 12/26/18 15:15 Urine Appearance CLEAR 12/26/18 15:15 Urine pH 6.0 (5.0-9.0) 12/26/18 15:15 Ur Specific Wesley 1.016 12/26/18 15:15 Urine Protein NEGATIVE mg/dL (NEGATIVE) 12/26/18 15:15 Urine Glucose (UA) NEGATIVE mg/dL (NEGATIVE) 12/26/18 15:15 Urine Ketones NEGATIVE mg/dL (NEGATIVE) 12/26/18 15:15 Urine Blood NEGATIVE (NEGATIVE) 12/26/18 15:15 Urine Nitrite (Reflex) NEGATIVE (NEGATIVE) 12/26/18 15:15 Urine Bilirubin NEGATIVE (NEGATIVE) 12/26/18 15:15 Urine Urobilinogen NEGATIVE mg/dL (<2.0) 12/26/18 15:15 Leukocyte Esterase Rfl NEGATIVE (NEGATIVE) 12/26/18 15:15 Urine RBC (Auto) 0 /HPF 12/26/18 15:15 Urine Bacteria (Auto) TRACE /HPF 12/26/18 15:15 Urine WBC (Reflex) < 1 /HPF 12/26/18 15:15 Squamous Epi Cells Auto 1 /HPF 12/26/18 15:15 Urine Ascorbic Acid NEGATIVE (NEGATIVE) 12/26/18 15:15 Urine Opiates Screen NEGATIVE 12/26/18 15:15 Urine Methadone Screen NEGATIVE 12/26/18 15:15 Ur Barbiturates Screen NEGATIVE 12/26/18 15:15 Ur Phencyclidine Scrn NEGATIVE 12/26/18 15:15 Ur Amphetamines Screen NEGATIVE 12/26/18 15:15 U Benzodiazepines Scrn NEGATIVE 12/26/18 15:15 Urine Cocaine Screen NEGATIVE 12/26/18 15:15 U Marijuana (THC) Screen NEGATIVE 12/26/18 15:15 Chlamydia DNA (PCR) NOT DETECTED (NOT DETECT) 12/27/18 04:43 N.gonorrhoeae DNA (PCR) NOT DETECTED (NOT DETECT) 12/27/18 04:43 Blood Type A POSITIVE 12/27/18 09:16 Antibody Screen NEGATIVE 12/27/18 09:16 Impressions: Chest X-Ray 12/26/18 15:03 IMPRESSION: NO ACUTE RADIOGRAPHIC FINDING IN THE CHEST. Abdomen Ultrasound 12/26/18 16:48 IMPRESSION: NORMAL RIGHT UPPER QUADRANT ULTRASOUND. Transvaginal US 12/26/18 19:31 IMPRESSION: Large, homogenous iso to slightly hypoechoic mass located within the left adnexa. The etiology of this finding is uncertain though this potentially represents a large endometrioma or hemorrhagic cyst. A small amount of hemoperitoneum may be evident about the left adnexa. Given this lesion's large size, correlation with pelvic MRI with IV contrast or surgical evaluation is recommended. No definitive evidence of ovarian torsion. copyright 2010 [employer]- All Rights Reserved Stroke Is this a Stroke Patient?: No Acute Heart Failure - Is this a Heart Failure Patient?: No
== END 2018-12-28 09:16 | disposition home or self-care (01) ==
LOC: ER 14:48 → EH 22:35 → 2S 12-27 01:18
PROVIDERS: ADMIT Student in an Organized Health Care Education/Training Program; ATTEND Student in an Organized Health Care Education/Training Program
PROC: 0UT64ZZ Resection of Left Fallopian Tube, Percutaneous Endoscopic Approach (ICD-10-PCS; 2018-12-27)
PROC: 0DNW4ZZ Release Peritoneum, Percutaneous Endoscopic Approach (ICD-10-PCS; 2018-12-27)
PROC: 0UT14ZZ Resection of Left Ovary, Percutaneous Endoscopic Approach (ICD-10-PCS; principal; 2018-12-27 14:00)
DX: N80.1 Endometriosis of ovary (principal); N83.12 Corpus luteum cyst of left ovary; N73.6 Female pelvic peritoneal adhesions (postinfective); K59.00 Constipation, unspecified; R10.31 Right lower quadrant pain; K66.1 Hemoperitoneum; N92.0 Excessive and frequent menstruation with regular cycle; K92.1 Melena; Z96.82 Presence of neurostimulator; Z79.899 Other long term (current) drug therapy
CPT/HCPCS: 99285; 96374; 96375; 86900; 86901; 36415 ×3; 86850; 85027; 87070; 81001; 80307; 87491; 87591; 88305 ×2; 71046; 76705; 76830; 93976; 00840; 58661; 58660; G0378 ×4; J2250; J0690 ×2; J3490 ×2; J1100; J0500; J1885 ×4; J3010 ×2; J2710; J1170 ×2; J0330; J2405 ×2; J7060 ×2; J7120; J2704; J0131; 840; 88304